=== PATIENT | female | born 1945 | race Caucasian/White ===

== ENCOUNTER 2024-11-07 13:51 | Inpatient (IN) ==
--- NOTE | 2024-11-07 14:24 | Emergency Department Note ---
Impression & Plan Acute cholecystitis, Chest pain, Abnormal pelvic ultrasound ED Provider Note CHIEF COMPLAINT: Abdominal and chest pain HISTORY OF PRESENTING ILLNESS: This 79-year-old female patient presents to the emergency department for evaluation of epigastric abdominal pain radiating into the left upper chest. Symptoms started at 3:30 am this morning. The patient was seen in the ER around 5 AM this morning for similar symptoms. The patient had a bump on the right side of her abdomen and also had 3 normal bowel movements without blood this morning. No history of previous abdominal surgeries. The symptoms are getting progressively worse and the patient became concerned. The pain is mostly in her upper abdomen, but radiating into her chest. She denies any history of acid reflux. She denies any cardiac history. She rates her discomfort as sharp and 10/10. She denies any fevers. Denies cough or URI symptoms. She had nausea this morning, but no vomiting. Denies any urinary symptoms. No diarrhea or constipation. She is not on any blood thinners. She started on atorvastatin about 2 weeks ago. The patient denies recent long car or plane rides or recent injury/trauma/surgery. Denies any personal history of blood clots or bleeding disorders. Denies any family history of blood clots or bleeding disorders. Denies any hormonal medication use. Denies any hemoptysis. Denies leg/calf pain or swelling. Laboratory studies this morning showed an unremarkable CBC, CMP, lipase, and urinalysis. CT scan of the abdomen pelvis with IV contrast done this morning showed diffuse gastric fundus wall thickening measuring up to 2 cm with collapsed gastric lumen which could be secondary to gastritis or nonspecific finding. There is a left adrenal nodule measuring 15 x 11 mm with further dedicated adrenal protocol recommended. Right omental containing inguinal hernia which is noncomplicated. Cholelithiasis without evidence for cholecystitis. Mild hepatomegaly. A distended endometrial cavity measuring 8 mm which needs ultrasound correlation. REVIEW OF SYSTEMS: See HPI for pertinent positives and pertinent negatives. ALLERGIES: NKDA MEDICATIONS: See below PAST MEDICAL HISTORY: See below PHYSICAL EXAM: VITALS: Vitals are noted on the nurse's note and reviewed by myself. GENERAL: Non toxic, in no acute distress, non-diaphoretic. SKIN: Capillary refill <2 sec. EYES: PERRLA. EOMI. Conjunctivae without injection, sclerae without icterus. NOSE: Patent without discharge. MOUTH: Mucous membranes moist. Uvula midline. Airway patent. NECK: Supple without nuchal rigidity. HEART: Regular rate and rhythm without murmurs gallops or rubs. LUNGS: Clear to auscultation bilaterally without wheezes, rales or rhonchi. No retractions or accessory muscle use. ABDOMEN: Positive bowel sounds x 4. Normal tympanic percussion. Soft, tender to palpation in the right upper quadrant and epigastric area. No masses or hepatosplenomegaly. Sheriff sign negative. No CVA tenderness. No guarding, rigidity, or rebound tenderness. No focal RLQ or LLQ tenderness. MUSCULOSKELETAL: No gross musculoskeletal defects. NEURO: Patient was alert and oriented. No focal neurological deficits. DIFFERENTIAL DIAGNOSIS: Differential diagnosis includes hepatitis, pancreatitis, cholecystitis, cholelithiasis, appendicitis, kidney stone, pyelonephritis, UTI, gastritis, gastroenteritis, mesenteric adenitis, obstruction, constipation, hernia, abdominal abscess, perforation, diverticulitis, IBD, ischemic colitis, abdominal aortic aneurysm, , ectopic , ovarian cyst, ovarian torsion, acute salpingitis, or others. ED COURSE AND MEDICAL DECISION MAKING: HISTORY FROM INDEPENDENT HISTORIAN: Additional history obtained from the patient's MEDICATIONS GIVEN: 500 mL normal saline solution bolus. Tylenol 1000 mg IV and Zofran 4 mg IV. Zosyn 4.5 g IV. MONITOR: Continuous employment interviewer: Order was placed for continuous employment interviewer. Patient was placed on the employment interviewer and continuous pulse ox. Patient was noted to be in normal sinus rhythm at an initial rate of 80 bpm per my interpretation. EKG: EKG was interpreted by myself as sinus rhythm at 74 bpm with occasional PVCs, but no acute ST or T wave changes. INTERPRETATION OF LABS: I interpreted the labs with full lab results as below in the lab section of this note. Laboratory results pertinent to the emergent complaint are discussed in the MDM section below. The patient was advised to follow up with their PCP and/or specialist(s) for further outpatient monitoring and management of any abnormal results. INTERPRETATION OF IMAGING: Imaging studies were interpreted by myself and read by radiology as per the imaging section of this note. The patient was advised to follow up with their PCP and/or specialist(s) for further outpatient management of any non-emergent abnormal findings. Chest x-ray showed cardiomegaly, pulmonary vascular congestion, and aortic ectasia. No evidence of acute abnormalities. Right upper quadrant ultrasound showed cholelithiasis with possible acute cholecystitis. Fatty infiltration of the liver. Pelvic ultrasound showed focal fluid or simple cyst in the endometrial cavity measuring 0.7 x 1.3 cm with no endometrial thickening or vascularity. If clinical concern warrants, ITEM PROCESSING CLERK consultation should be considered. CONSULTATIONS: Dr. Alcala of general surgery. On-call hospitalist. MDM SUMMARY: I examined the patient. The patient started with epigastric abdominal pain around 3:30 AM this morning. She was seen in the emergency department around 5 AM this morning and had a CT scan of the abdomen pelvis with IV contrast that showed possible gastritis versus a nonspecific finding as well as a left adrenal nodule, right omental containing inguinal hernia, cholelithiasis without evidence for cholecystitis, mild hepatomegaly, and a distended endometrial cavity. Laboratory studies were reassuring at that time with an unremarkable CBC, CMP, lipase, and urinalysis. The patient was discharged home, but developed significantly worsening pain at home and return to the ER. The patient states that the epigastric and right upper quadrant abdominal pain that radiates into her chest and shoulder area. An IV lock was placed and labs were drawn. The patient was given Tylenol 1000 mg IV and Zofran 4 mg IV with improvement of her symptoms. White blood cell count is now elevated at 15.76 where it was previously 10.21 earlier today. Hemoglobin normal at 13.3. Platelet count normal at 245. PT/INR was normal. Glucose 108, but CMP otherwise normal. Lipase normal. EKG and high-sensitivity troponin without acute abnormalities and I have a low suspicion for ACS at this time. COVID, RSV, and influenza were negative. Initial lactate was elevated at 2.2. Given the patient's elevated lactate and elevated white blood cell count, there is concern for possible sepsis. The patient was only given a 500 mL normal saline solution bolus due to the chest x- ray findings of pulmonary vascular congestion and concern for fluid overload. Blood cultures were drawn. The patient was given Zosyn 4.5 g IV. Unfortunately, the lactate order had been placed prior to my evaluation of the patient and was not the reflex lactate order to be automatically redrawn by lab. Therefore, there was a delay in the repeat lactate level being drawn. The repeat lactate level was normal at 1.8. Chest x-ray showed cardiomegaly, pulmonary vascular congestion, and aortic ectasia. No evidence of acute abnormalities. Right upper quadrant ultrasound showed cholelithiasis with possible acute cholecystitis. Fatty infiltration of the liver. Pelvic ultrasound showed focal fluid or simple cyst in the endometrial cavity measuring 0.7 x 1.3 cm with no endometrial thickening or vascularity. If clinical concern warrants, ITEM PROCESSING CLERK consultation should be considered. The patient was made aware of the previous adrenal nodule as well as the endometrial abnormality. The patient will need continued outpatient management of these findings. Due to the patient's increasing pain, elevated lactate, and elevated white blood cell count with new findings of possible acute cholecystitis on ultrasound, I am concerned for acute cholecystitis as a cause of her symptoms. I spoke with Dr. Alcala of general surgery. He recommended the patient be admitted by medicine with surgical consult and possible cholecystectomy tomorrow if she is medically cleared. The patient had already been given IV Zosyn. He does not recommend MRCP at this time. He will continue to consult on the patient. I then spoke with the on-call hospitalist who agreed to admit the patient for further evaluation and treatment. Please refer to their dictation for further details. The patient's care was transferred in stable condition. I had a meaningful discussion about this patient with Dr. Giraldo who agrees with my assessment and the treatment plan. DIAGNOSIS: Acute cholecystitis Chest pain Abnormal pelvic ultrasound Past Med/Surg History Problem List (Updated 11/07/24 @ 19:36 by Brianda Molina PA-C) Abnormal pelvic ultrasound (Acute) Chest pain (Acute) Acute cholecystitis (Acute) Abdominal pain (Acute) Medical History Sciatica of left side Fell Aug 2023, just completed physical therapy Surgical History H/O right cataract extraction History of colonoscopy Family History Other No family history of adverse response to anesthesia Social History Smoking Status: Never smoker Second Hand Exposure: No; Do You Dip or Chew Tobacco: No; Hx Alcohol Use: No Hx Substance Use: No Preferred Language: Faroese Communication Ability: Effective Raw Hide Trimmer Required: No Beliefs That Will Affect Care: None Current Living Situation: Spouse Feels Safe at Home: Yes Assistive Devices: Glasses Allergies Allergies Allergy/AdvReac Type Severity Reaction Status Date / Time No Known Allergies Allergy Verified 09/05/24 07:00 Home Meds Home Medications Medication Instructions Recorded Confirmed calcium 600 mg (as 1 tab PO BID 08/15/24 09/05/24 carbonate)-vitamin D3 5 mcg (200 unit) tablet calcium polycarbophil 625 mg tablet 1,875 mg PO HS 08/15/24 09/05/24 cholecalciferol (vitamin D3) 50 50 mcg PO QAM 08/15/24 09/05/24 mcg (2,000 unit) tablet (Vitamin D3) fish, borage, flaxseed oils-omega 1 cap PO QAM 08/15/24 09/05/24 3,6,9 cb #1 400 mg-400 mg-400 mg cap (Triple Dennard 3-6-9) glucosamine sulf dipot 1 cap PO QAM 08/15/24 09/05/24 chlr,msm,chond 550 mg-C 30 mg-manfred 1 mg capsule (Glucosamine Chondroitin) grape seed extract 1 cap PO QAM 08/15/24 09/05/24 multivitamin 1 tab PO QAM 08/15/24 09/05/24 vit C 250 mg-vit E 90 mg-zinc 10 1 cap PO QAM 08/15/24 09/05/24 mg-copper 1 [id number] capsule (Eye Health Vitamin-Mineral) vitamin B complex 1 tab PO QAM 08/15/24 09/05/24 Results & Data (ED) Vital Signs Vital Signs - 24 hr 11/07/24 13:54 11/07/24 14:22 11/07/24 15:00 Temperature 37.1 C Temperature Source Temporal Artery Scan Pulse Rate 82 77 82 Pulse Rate [Apical] Pulse Rate from SpO2 Sensor 77 Pulse Rhythm Regular Respiratory Rate 20 22 Respiratory Effort / Characteristics Non-Labored Spontaneous Respiratory Depth Normal Respiratory Pattern Regular Blood Pressure 179/87 H 136/115 H Blood Pressure [Left Arm] Blood Pressure Mean 117 122 Blood Pressure Mean [Left Arm] Blood Pressure Position Sitting Blood Pressure Position [Left Arm] Pulse Oximetry 95 Oxygen Delivery Method Room Air Sepsis Recent Fever Within 48 Hours No Sepsis New/Unexplained Change in Mental Status No Sepsis Action Taken by Nursing No Action Required 11/07/24 15:24 11/07/24 15:34 11/07/24 15:41 Temperature Temperature Source Pulse Rate 79 Pulse Rate [Apical] Pulse Rate from SpO2 Sensor 71 Pulse Rhythm Respiratory Rate 16 Respiratory Effort / Characteristics Respiratory Depth Respiratory Pattern Blood Pressure 153/87 H Blood Pressure [Left Arm] Blood Pressure Mean 118 Blood Pressure Mean [Left Arm] Blood Pressure Position Blood Pressure Position [Left Arm] Pulse Oximetry 96 Oxygen Delivery Method Room Air Sepsis Recent Fever Within 48 Hours Sepsis New/Unexplained Change in Mental Status Sepsis Action Taken by Nursing 11/07/24 15:42 11/07/24 17:21 11/07/24 17:36 Temperature Temperature Source Pulse Rate 75 86 80 Pulse Rate [Apical] Pulse Rate from SpO2 Sensor 79 87 80 Pulse Rhythm Respiratory Rate 18 21 25 H Respiratory Effort / Characteristics Respiratory Depth Respiratory Pattern Blood Pressure 154/83 H Blood Pressure [Left Arm] Blood Pressure Mean 106 Blood Pressure Mean [Left Arm] Blood Pressure Position Blood Pressure Position [Left Arm] Pulse Oximetry 96 95 95 Oxygen Delivery Method Sepsis Recent Fever Within 48 Hours Sepsis New/Unexplained Change in Mental Status Sepsis Action Taken by Nursing 11/07/24 17:45 11/07/24 17:54 11/07/24 18:06 Temperature Temperature Source Pulse Rate 78 75 83 Pulse Rate [Apical] Pulse Rate from SpO2 Sensor 77 73 70 Pulse Rhythm Respiratory Rate 22 16 25 H Respiratory Effort / Characteristics Respiratory Depth Respiratory Pattern Blood Pressure Blood Pressure [Left Arm] Blood Pressure Mean Blood Pressure Mean [Left Arm] Blood Pressure Position Blood Pressure Position [Left Arm] Pulse Oximetry 94 94 95 Oxygen Delivery Method Sepsis Recent Fever Within 48 Hours Sepsis New/Unexplained Change in Mental Status Sepsis Action Taken by Nursing 11/07/24 18:20 11/07/24 18:20 11/07/24 18:24 Temperature Temperature Source Pulse Rate 68 72 Pulse Rate [Apical] Pulse Rate from SpO2 Sensor 74 Pulse Rhythm Respiratory Rate 21 Respiratory Effort / Characteristics Respiratory Depth Respiratory Pattern Blood Pressure 143/72 H Blood Pressure [Left Arm] Blood Pressure Mean 110 Blood Pressure Mean [Left Arm] Blood Pressure Position Blood Pressure Position [Left Arm] Pulse Oximetry 94 Oxygen Delivery Method Sepsis Recent Fever Within 48 Hours Sepsis New/Unexplained Change in Mental Status Sepsis Action Taken by Nursing 11/07/24 18:40 11/07/24 18:59 Temperature Temperature Source Pulse Rate 68 Pulse Rate [Apical] 70 Pulse Rate from SpO2 Sensor Pulse Rhythm Respiratory Rate 19 16 Respiratory Effort / Characteristics Non-Labored Spontaneous Respiratory Depth Normal Respiratory Pattern Regular Blood Pressure Blood Pressure [Left Arm] 142/84 H Blood Pressure Mean Blood Pressure Mean [Left Arm] 103 Blood Pressure Position Blood Pressure Position [Left Arm] Semi-fowlers Pulse Oximetry 92 94 Oxygen Delivery Method Room Air Room Air Sepsis Recent Fever Within 48 Hours Sepsis New/Unexplained Change in Mental Status Sepsis Action Taken by Nursing Laboratory Data 11/07/24 14:36 11/07/24 16:53 Lab Results 11/07/24 11/07/24 11/07/24 Range/Units 14:36 15:40 16:53 WBC 15.76 H (4.8-10.8) K/ul RBC 4.32 (4.20-5.40) M/uL Hgb 13.3 (12.0-16.0) g/dl Hct 40.3 (37.0-47.0) % MCV 93.3 (80.0-100.0) fL MCH 30.8 (25.0-34.0) pg MCHC 33.0 (32.0-36.0) g/dL RDW Std Deviation 44.1 (36.4-46.3) fL RDW Coeff of Feliciano 12.9 (11.5-14.5) % Plt Count 245 (130-400) K/uL MPV 10.1 (9.4-12.4) fL Immature Gran % (Auto) 0.4 % Neut % (Auto) 79.8 % Lymph % (Auto) 12.7 % [place] % (Auto) 6.0 % Eos % (Auto) 0.6 % Baso % (Auto) 0.5 % Neut # (Auto) 12.57 H (1.40-6.50) K/uL Lymph # (Auto) 2.00 (1.20-3.40) K/uL [place] # (Auto) 0.95 H (0.11-0.59) K/uL Eos # (Auto) 0.09 (0.00-0.50) K/uL Baso # (Auto) 0.08 (0.00-0.20) K/uL Immature Gran # (Auto) 0.07 (0.01-0.20) K/uL PT Cancelled 10.5 INR Cancelled 1.0 Sodium 138 (136-145) mmol/L Potassium TNP 3.9 Chloride 104 (98-107) mmol/L Carbon Dioxide 27 (21-32) mmol/L Anion Gap 7 (3-11) BUN 15 (6-23) mg/dl Creatinine 0.72 (0.6-1.2) mg/dl Est Cr Clr Drug Dosing Not Reportable eGFR 85.00 BUN/Creatinine Ratio 20.8 H (10-20) Glucose 108 H (70-99(Fasting)) mg/dl Lactate 2.2 H* (0.4-2.0) mmol/L Calcium 9.4 (8.6-10.3) mg/dl Total Bilirubin 0.4 (0.2-1.0) mg/dl AST TNP 21 ALT 23 (7-52) U/L Alkaline Phosphatase 80 (34-104) U/L Troponin I High Sens < 2.3 (0-14) pg/ml Total Protein 7.5 (6.0-8.3) gm/dl Albumin 4.4 (3.4-5.0) gm/dl Globulin 3.1 (2.5-4.0) gm/dl Albumin/Globulin Ratio 1.4 (0.9-2) Lipase 25 (11-82) U/L SARS-CoV-2 (PCR) NEGATIVE (Negative) Influenza Type A (PCR) Negative (Neg) Influenza Type B (PCR) Negative (Neg) RSV (RT-PCR) Negative (Neg) 11/07/24 Range/Units 18:18 WBC (4.8-10.8) K/ul RBC (4.20-5.40) M/uL Hgb (12.0-16.0) g/dl Hct (37.0-47.0) % MCV (80.0-100.0) fL MCH (25.0-34.0) pg MCHC (32.0-36.0) g/dL RDW Std Deviation (36.4-46.3) fL RDW Coeff of Feliciano (11.5-14.5) % Plt Count (130-400) K/uL MPV (9.4-12.4) fL Immature Gran % (Auto) % Neut % (Auto) % Lymph % (Auto) % [place] % (Auto) % Eos % (Auto) % Baso % (Auto) % Neut # (Auto) (1.40-6.50) K/uL Lymph # (Auto) (1.20-3.40) K/uL [place] # (Auto) (0.11-0.59) K/uL Eos # (Auto) (0.00-0.50) K/uL Baso # (Auto) (0.00-0.20) K/uL Immature Gran # (Auto) (0.01-0.20) K/uL PT INR Sodium (136-145) mmol/L Potassium Chloride (98-107) mmol/L Carbon Dioxide (21-32) mmol/L Anion Gap (3-11) BUN (6-23) mg/dl Creatinine (0.6-1.2) mg/dl Est Cr Clr Drug Dosing eGFR BUN/Creatinine Ratio (10-20) Glucose (70-99(Fasting)) mg/dl Lactate 1.8 (0.4-2.0) mmol/L Calcium (8.6-10.3) mg/dl Total Bilirubin (0.2-1.0) mg/dl AST ALT (7-52) U/L Alkaline Phosphatase (34-104) U/L Troponin I High Sens (0-14) pg/ml Total Protein (6.0-8.3) gm/dl Albumin (3.4-5.0) gm/dl Globulin (2.5-4.0) gm/dl Albumin/Globulin Ratio (0.9-2) Lipase (11-82) U/L SARS-CoV-2 (PCR) (Negative) Influenza Type A (PCR) (Neg) Influenza Type B (PCR) (Neg) RSV (RT-PCR) (Neg) Administered Medications Discontinued Medications Sodium Chloride (Nss) 500 mls @ 999 mls/hr IV .Q31M ONE Stop: 11/07/24 15:12 Last Infusion: 11/07/24 15:53 Dose: Infused Documented By: Admin: 11/07/24 15:04 Dose: 999 mls/hr Documented By: CEF Acetaminophen (Ofirmev) 1,000 mg in 100 mls @ 400 mls/hr IV NOW STA Stop: 11/07/24 14:56 Last Infusion: 11/07/24 15:38 Dose: Infused Documented By: Admin: 11/07/24 15:04 Dose: 400 mls/hr Documented By: CEF Sodium Chloride (Nss) 1,000 mls @ 999 mls/hr IV .Q1H1M ONE Stop: 11/07/24 16:26 Last Admin: 11/07/24 15:42 Dose: Not Given Documented By: CEF Piperacillin Sod/Tazobactam Sod (Zosyn) 4.5 gm in 100 mls @ 200 mls/hr IV NOW ONE; Protocol Stop: 11/07/24 17:45 Last Infusion: 11/07/24 18:26 Dose: Infused Documented By: Admin: 11/07/24 17:25 Dose: 200 mls/hr Documented By: CEF Ondansetron HCl (Ondansetron Inj 2 Mg/Ml 2 Ml Vial) 4 mg IV NOW STA Stop: 11/07/24 14:43 Last Admin: 11/07/24 15:02 Dose: 4 mg Documented By: CEF Imaging Data Radiologist's Impression: Chest X-Ray 11/07/24 14:08 XR chest 1V portable CLINICAL HISTORY: abd pain COMPARISON STUDY: 07/24/2023 FINDINGS: Single view portable chest is unchanged demonstrating mild cardiomegaly and pulmonary vascular congestion. Slight prominence of the interstitial lung markings is once again noted. There is no focal airspace opacity or pleural effusion. There is no pneumothorax. There is atherosclerotic ectasia of the ascending aorta and aortic arch which also appears stable allowing for AP portable technique. IMPRESSION: No definite evidence of acute process. Cardiomegaly and aortic ectasia identified. ACT 112: Negative or not required by law. Electronically signed by: Leticia Gaona M.D. 11/07/2024 3:31 PM Gallbladder Ultrasound 11/07/24 14:42 Clinical history: Right upper quadrant pain Technique: Sonography was performed of the right upper quadrant of the abdomen Findings: There is fatty infiltration of the liver. No definite liver mass is seen. The liver measures 18.9 cm. There is normal directional flow in the main portal vein There are multiple gallstones. There is also apparent gallbladder sludge. The gallbladder is mildly distended. The gallbladder wall measures 3 mm, the upper limit of normal. No definite sonographic Sheriff sign was detected, though this could be due to pain medication. There is no intrahepatic or extrahepatic bile duct dilatation. The common bile duct measures 3 mm The right kidney measures 11.5 cm in length. There is no hydronephrosis. No definite renal calculus or mass is seen The visualized pancreas, aorta, and IVC appear unremarkable. No ascites is seen Impression: 1. Cholelithiasis with possible acute cholecystitis 2. Fatty infiltration of the liver ACT 112: Positive. There are findings on this exam that require communication between the performing entity and the patient following Patient Test Result Information Act ([place] ACT 112) guidelines. Electronically signed by Arturo Berger 11-07-2024 5:12 PM Pelvis Ultrasound 11/07/24 14:42 EXAMINATION: Ultrasound pelvis complete CLINICAL HISTORY: Follow-up from CT PRIORS: Abdomen CT today TECHNIQUE: Transabdominal pelvic ultrasound was performed with grayscale and color Doppler imaging. Transvaginal portion of the examination was declined. FINDINGS: Urinary bladder is filled with normal morphology. The uterus measures 6.0 x 2.6 x 3.7 cm. Nabothian cysts noted in the cervix. Endometrial stripe measures 3 mm. Simple cyst cyst and/or focal area of fluid present within the endometrial cavity measuring 0.7 x 1.3 cm. No vascularity or solid components. Ovaries not visualized. No large adnexal cyst or mass. No free fluid in the pelvis. IMPRESSION: 1. Focal fluid or simple cyst in the endometrial cavity measuring 0.7 x 1.3 cm with no endometrial thickening or vascularity. If clinical concern warrants, gynecologic consultation could be considered. ACT 112: Positive. There are findings on this examination that require communication between the performing entity and the patient following Patient Test Result Information Act ([place] ACT 112) guidelines. Electronically signed by Laurel Angulo 11-07-2024 5:00 PM Discharge Plan Visit Data Chief Complaint: Chest Pain Stated Complaint: ABD PAIN AND CHEST PAIN ED Provider: Ellen Giraldo ED Midlevel Provider: Brianda Molina Discharge Problem: Acute cholecystitis, Chest pain, Abnormal pelvic ultrasound Patient Disposition: Admitted As Inpatient Condition: Good Forms Stand Alone Forms: [employer] Prescriptions Prescriptions: No Action multivitamin Tablet 1 tab PO QAM calcium carbonate-vitamin D3 600 mg-5 mcg (200 unit) Tablet 1 tab PO BID calcium polycarbophil 625 mg Tablet 1,875 mg PO HS vitamin B complex Tablet 1 tab PO QAM cholecalciferol (vitamin D3) [Vitamin D3] 50 mcg (2,000 unit) Tablet 50 mcg PO QAM fish,bora,flax oils-om3,6,9no1 [Triple Dennard 3-6-9] 400-400-400 mg Capsule 1 cap PO QAM Glucosamine Chondroitin 550-30-1 mg Capsule 1 cap PO QAM Eye Health Vitamin-Mineral 250-90-10-1 mg Capsule 1 cap PO QAM grape seed extract 1 cap PO QAM Referrals Referrals: Jesi Lindsay DO [Primary Care Provider] - Discharge Problem: Chest pain Qualifiers: Chest pain type: unspecified Qualified Code(s): R07.9 - Chest pain, unspecified
[2024-11-07 14:51] LABS: Basophils # (auto) 0.08 K/uL (0.00-0.20); Basophils % (auto) 0.5 %; Eosinophils # (auto) 0.09 K/uL (0.00-0.50); Eosinophils % (auto) 0.6 %; Hematocrit (blood only) 40.3 % (37.0-47.0); Hemoglobin 13.3 g/dl (12.0-16.0); Immature Granulocytes # (auto) 0.07 K/uL (0.01-0.20); Immature Granulocytes % (auto) 0.4 %; Lymphocytes % (auto) 12.7 %; Mean Corpuscular Hemoglobin 30.8 pg (25.0-34.0); Mean Corpuscular Volume 93.3 fL (80.0-100.0); Mean Platelet Volume 10.1 fL (9.4-12.4); Monocytes # (auto) 0.95 K/uL (0.11-0.59); Neutrophils # (auto) 12.57 K/uL (1.40-6.50); Neutrophils % (auto) 79.8 %; Platelet Count 245 K/uL (130-400); RDW Coefficient of Variation 12.9 % (11.5-14.5); RDW Standard Deviation 44.1 fL (36.4-46.3); Red Blood Count 4.32 M/uL (4.20-5.40); White Blood Count 15.76 K/ul (4.8-10.8)
[2024-11-07] MEDS: ONDANSETRON INJ 2 MG/ML 2 ML VIAL IV STA (15:02)
[2024-11-07] MEDS: ACETAMINOPHEN 1,000 MG/100 ML VIAL IV STA (15:04)
[2024-11-07] MEDS: SODIUM CHLORIDE 0.9% 500 ML IV ONE (15:04)
[2024-11-07 15:09] LABS: Alanine Aminotransferase 23 U/L (7-52); Albumin Globulin Ratio 1.4 (0.9-2); Albumin Level 4.4 gm/dl (3.4-5.0); Alkaline Phosphatase 80 U/L (34-104); Anion Gap 7 (3-11); BUN Creatinine Ratio 20.8 (10-20); Bilirubin,Total 0.4 mg/dl (0.2-1.0); Blood Urea Nitrogen 15 mg/dl (6-23); Calcium 9.4 mg/dl (8.6-10.3); Carbon Dioxide 27 mmol/L (21-32); Chloride 104 mmol/L (98-107); Globulin 3.1 gm/dl (2.5-4.0); Glucose 108 mg/dl (70-99(Fasting)); Lipase 25 U/L (11-82); Sodium 138 mmol/L (136-145); Total Protein 7.5 gm/dl (6.0-8.3)
--- NOTE | 2024-11-07 15:33 | XRay Report ---
XR chest 1V portable CLINICAL HISTORY: abd pain COMPARISON STUDY: 07/24/2023 FINDINGS: Single view portable chest is unchanged demonstrating mild cardiomegaly and pulmonary vascu lar congestion. Slight prominence of the interstitial lung markings is once again noted. There is no focal airspace opacity or pleural effusion. There is no pneumothorax. There is atherosclerotic ectasi a of the ascending aorta and aortic arch which also appears stable allowing for AP portable technique . IMPRESSION: No definite evidence of acute process. Cardiomegaly and aortic ectasia identified. ACT 112: Negative or not required by law. Electronically signed by: Leticia Gaona M.D. 11/07/2024 3:31 PM
[2024-11-07] MEDS: SODIUM CHLORIDE 0.9% 1,000 ML IV ONE (15:42)
[2024-11-07 16:15] LABS: Troponin I High Sensitivity < 2.3 pg/ml (0-14)
--- NOTE | 2024-11-07 17:00 | Ultrasound Report ---
EXAMINATION: Ultrasound pelvis complete CLINICAL HISTORY: Follow-up from CT PRIORS: Abdomen CT today TECHNIQUE: Transabdominal pelvic ultrasound was performed with grayscale and color Doppler imaging. Transvaginal portion of the examination was declined. FINDINGS: Urinary bladder is filled with normal morphology. The uterus measures 6.0 x 2.6 x 3.7 cm. Nabothian cysts noted in the cervix. Endometrial stripe measures 3 mm. Simple cyst cyst and/or focal area of fluid present within the endometrial cavity measuring 0.7 x 1.3 cm. No vascularity or solid components. Ovaries not visualized. No large adnexal cyst or mass. No free fluid in the pelvis. IMPRESSION: 1. Focal fluid or simple cyst in the endometrial cavity measuring 0.7 x 1.3 cm with no endometrial thickening or vascularity. If clinical concern warrants, gynecologic consultation could be considered. ACT 112: Positive. There are findings on this examination that require communication between the performing entity and the patient following Patient Test Result Information Act ([place] ACT 112) guidelines. Electronically signed by Laurel Angulo 11-07-2024 5:00 PM
--- NOTE | 2024-11-07 17:12 | Ultrasound Report ---
Clinical history: Right upper quadrant pain Technique: Sonography was performed of the right upper quadrant of the abdomen Findings: There is fatty infiltration of the liver. No definite liver mass is seen. The liver measures 18.9 cm. There is normal directional flow in the main portal vein There are multiple gallstones. There is also apparent gallbladder sludge. The gallbladder is mildly distended. The gallbladder wall measures 3 mm, the upper limit of normal. No definite sonographic Sheriff sign was detected, though this could be due to pain medication. There is no intrahepatic or extrahepatic bile duct dilatation. The common bile duct measures 3 mm The right kidney measures 11.5 cm in length. There is no hydronephrosis. No definite renal calculus or mass is seen The visualized pancreas, aorta, and IVC appear unremarkable. No ascites is seen Impression: 1. Cholelithiasis with possible acute cholecystitis 2. Fatty infiltration of the liver ACT 112: Positive. There are findings on this exam that require communication between the performing entity and the patient following Patient Test Result Information Act ([place] ACT 112) guidelines. Electronically signed by Arturo Berger 11-07-2024 5:12 PM
[2024-11-07] MEDS: PIPERACILLIN/TAZOBACTAM 4.5 GM/100 ML BAG IV ONE (17:25)
[2024-11-07 17:27] LABS: Potassium 3.9 mmol/L (3.5-5.1)
[2024-11-07 17:56] LABS: Prothrombin Time 10.5 Seconds (9.0-12.0)
--- NOTE | 2024-11-07 18:16 | Emergency Department Note ---
ED Visit Note I was consulted by the Advanced Practice Provider. I approved the management plan and take responsibility for the patient management. This includes the aspects of: -History/Physical/Personally seeing the patient -MDM -I independently interpreted the following studies:Studies and results .
--- NOTE | 2024-11-07 18:28 | History & Physical Report ---
Date of Service November 07, 2024 Assessment & Plan (1) Abdominal pain: Plan Acute cholecystitis CTAP reviewed, US GB suggestive of cholelithiasis and cholecystitis. Patient presents with upper abdominal pain, worse with eating. N.p.o., IV fluid, Zosyn, general surgery consult.Pain management, nausea control. Abnormal Pelvic Imaging: Left adrenal nodule 15 x 11 mm and focal fluid or simple cyst in the endometrial cavity measuring 0.7 x 1.3 cm. Patient and her made aware of the findings. They are made aware to follow this up as an outpatient with dedicated imaging for left adrenal nodule and gynecology evaluation for endometrial cyst. Other chronic medical conditions: HLD, continue with home medications. Hold multivitamins for now. DVT prophylaxis: SCDs, contemplated surgery next few days. Full code History of Present Illness Chief Complaint: Upper belly pain Primary Care Provider: Jesi Lindsay DO 79-year-old lady with PMH of HLD, osteopenia, prediabetes presents to the ED with complaint of upper belly pain. 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 Her pain slowly improved and she was discharged to home. After reaching home she ate tea and toast and her pain increased and became severe. While coming back to the hospital to see took a small dose of ibuprofen and she received IV Tylenol in the ED which helped improve her pain down to 0 at bedside exam. Patient denies fever/sore throat/cough/nausea/vomiting. Patient had an episode of nausea last evening and an episode of dry heave today morning. Patient denies any pain or burning with passing urine, reports moving bowels okay. Patient denies smoking tobacco/alcohol use/recreational drug use. Medications reviewed with the patient and her at bedside. Plan of care discussed with the patient in detail. She voiced understanding. Full code Allergies Allergy/AdvReac Type Severity Reaction Status Date / Time No Known Allergies Allergy Verified 09/05/24 07:00 Home Medications Medication Instructions Recorded Confirmed Type calcium 600 mg (as 1 tab PO BID 08/15/24 09/05/24 History carbonate)-vitamin D3 5 mcg (200 unit) tablet calcium polycarbophil 625 mg tablet 1,875 mg PO HS 08/15/24 09/05/24 History cholecalciferol (vitamin D3) 50 50 mcg PO QAM 08/15/24 09/05/24 History mcg (2,000 unit) tablet (Vitamin D3) fish, borage, flaxseed oils-omega 1 cap PO QAM 08/15/24 09/05/24 History 3,6,9 cb #1 400 mg-400 mg-400 mg cap (Triple [place] 3-6-9) glucosamine sulf dipot 1 cap PO QAM 08/15/24 09/05/24 History chlr,msm,chond 550 mg-C 30 mg-manfred 1 mg capsule (Glucosamine Chondroitin) grape seed extract 1 cap PO QAM 08/15/24 09/05/24 History multivitamin 1 tab PO QAM 08/15/24 09/05/24 History vit C 250 mg-vit E 90 mg-zinc 10 1 cap PO QAM 08/15/24 09/05/24 History mg-copper 1 [id number] capsule ([facility] Health Vitamin-Mineral) vitamin B complex 1 tab PO QAM 08/15/24 09/05/24 History Past Med/Surg History Problem List (Updated 11/07/24 @ 09:07 by Figueroa Posey M.D.) Abdominal pain (Acute) Medical History Sciatica of left side Fell Aug 2023, just completed physical therapy Surgical History H/O right cataract extraction History of colonoscopy Family History Other No family history of adverse response to anesthesia Social History Smoking Status: Never smoker Second Hand Exposure: No; Do You Dip or Chew Tobacco: No; Hx Alcohol Use: No Hx Substance Use: No Preferred Language: Citizen Of [place] Communication Ability: Effective Territory Sales Professional Required: No Beliefs That Will Affect Care: None Current Living Situation: Spouse Feels Safe at Home: Yes Assistive Devices: Glasses Review of Systems Review of Systems: Negative otherwise mentioned in HPI. Physical Exam Physical Exam: GENERAL: Alert and oriented x3. NAD, on RA. HEENT: No pallor, no icterus. Pupils equal, round and reactive to light. Oral mucosa moist. NECK: No JVD, no neck masses. HEART: S1 and S2 heard. Regular rate and rhythm. No murmur, no gallop. RESPIRATORY SYSTEM: Normal AP diameter. No accessory muscle use. No wheezing, no crackles. ABDOMEN: Soft, bowel sounds present, nontender, no distention. CENTRAL NERVOUS SYSTEM: No facial droop. Speech is clear. Obeys simple commands. Moves extremities. EXTREMITIES: No edema, no erythema seen. Results & Data Results & Data Vital Signs (Past 12 Hours) Vital Signs Temp Pulse Resp BP O2 Del Method 11/07/24 15:34 Room Air 11/07/24 14:22 77 11/07/24 13:54 37.1 C 82 20 179/87 H Room Air
[2024-11-07 19:12] LABS: Influenza A virus by PCR Negative (Neg); Influenza B virus by PCR Negative (Neg); RSV by PCR Negative (Neg); SARS CoV2 RNA(COVID-19) Ceph NEGATIVE (Negative)
[2024-11-07] MEDS ORDERED: ONDANSETRON INJ 2 MG/ML 2 ML VIAL IV PRN (20:00)
[2024-11-08 07:39] LABS: Hematocrit (blood only) 35.6 % (37.0-47.0); Hemoglobin 11.9 g/dl (12.0-16.0); Mean Corpuscular Hemoglobin 31.2 pg (25.0-34.0); Mean Corpuscular Hgb Conc 33.4 g/dL (32.0-36.0); Mean Corpuscular Volume 93.2 fL (80.0-100.0); Mean Platelet Volume 10.2 fL (9.4-12.4); Platelet Count 222 K/uL (130-400); RDW Coefficient of Variation 13.2 % (11.5-14.5); RDW Standard Deviation 45.1 fL (36.4-46.3); Red Blood Count 3.82 M/uL (4.20-5.40)
[2024-11-08 07:42] LABS: Appearance Urine Clear (Clear); Bilirubin Urine Negative (Negative); Blood Urine Negative (Negative); Color Urine Yellow; Glucose Urine UA Negative (Negative); Ketones Urine Negative (Negative); Leukocyte Esterase Urine Negative (Negative); Nitrite Urine Negative (Negative); Protein Urine Negative (Negative); Specific Gravity Urine 1.019 (1.000-1.030); Urobilinogen Urine Negative (Negative)
--- NOTE | 2024-11-08 07:42 | Surgery Consultation ---
Date of Consultation November 08, 2024 Assessment & Plan (1) Acute cholecystitis: IV abx IVF medically cleared, lap claudia this AM History of Present Illness Attending Physician: Vida Silva MD History of Present Illness 79YO female patient with RUQ/epigastric abdominal pain radiating across chest.She denies fevers/chills. She had nausea this morning, but no vomiting. GB ultrasound consistent with acute cholecystitis Allergies Allergy/AdvReac Type Severity Reaction Status Date / Time No Known Allergies Allergy Verified 11/07/24 19:47 Home Medications Medication Instructions Recorded Confirmed Type calcium 600 mg (as 1 tab PO BID 08/15/24 11/07/24 History carbonate)-vitamin D3 5 mcg (200 unit) tablet calcium polycarbophil 625 mg tablet 1,875 mg PO HS 08/15/24 11/07/24 History cholecalciferol (vitamin D3) 50 50 mcg PO QAM 08/15/24 11/07/24 History mcg (2,000 unit) tablet (Vitamin D3) fish, borage, flaxseed oils-omega 1 cap PO QAM 08/15/24 11/07/24 History 3,6,9 cb #1 400 mg-400 mg-400 mg cap (Triple [place] 3-6-9) glucosamine sulf dipot 1 cap PO QAM 08/15/24 11/07/24 History chlr,msm,chond 550 mg-C 30 mg-manfred 1 mg capsule (Glucosamine Chondroitin) multivitamin 1 tab PO QAM 08/15/24 11/07/24 History atorvastatin 20 mg tablet 20 mg PO QAM 11/07/24 11/07/24 History grape seed extract 50 mg capsule 0 mg PO QAM 11/07/24 11/07/24 History Patient History Medical History Sciatica of left side Fell Aug 2023, just completed physical therapy Surgical History H/O right cataract extraction History of colonoscopy Family History Other No family history of adverse response to anesthesia Social History Smoking Status: Former smoker Second Hand Exposure: No; Do You Dip or Chew Tobacco: No; Tobacco Cessation Education Requested by Patient: No Hx Alcohol Use: No Hx Substance Use: No Preferred Language: Greenlandic Communication Ability: Effective 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 Beliefs That Will Affect Care: None Current Living Situation: Spouse Other Information That Helps Us Care for You: No Feels Safe at Home: Yes Safety Concerns: Feels Safe At This Time Assistive Devices: Cane Assistive Devices Comment: cane when in pain Review of Systems Constitutional: + anorexia; no fever and no chills Eyes: no problem reported Ear, Nose, Mouth, Throat: no problem reported Respiratory: no cough and no dyspnea Cardiovascular: no chest pain Gastrointestinal: + abdominal pain and + nausea; no vomiti ng and no change in bowel habits Genitourinary: no dysuria Musculoskeletal: no back pain Neurologic: no localized weakness and no generalized weakness Psychiatric: no behavioral changes Hematologic / Lymphatic: no easy bleeding and no easy bruising Physical Exam Eyes: no scleral abnormality ENMT: external ear and nose normal, oropharynx normal Neck: trachea midline Respiratory: normal respiratory effort, lungs clear to auscultation Cardiovascular: RRR, no murmur, no edema Gastrointestinal (Abdomen): Inspection/Auscultation: abdomen normal to inspection and normal bowel sounds; abdomen not distended and no abdominal surgical scar Percussion/Palpation: + abdomen tender and abdomen soft; no guarding and abdomen not rigid Musculoskeletal: Head/Neck/Chest: normocephalic and head atraumatic Skin: no rashes, warm and dry Results & Data Vital Signs (Past 12 Hours) Vital Signs Temp Pulse Pulse Resp BP Pulse Ox O2 Del Method 11/08/24 07:20 36.8 C 70 16 134/71 95 Room Air 11/07/24 21:00 Room Air 11/07/24 21:00 36.5 C 79 18 152/71 H 97 Room Air 11/07/24 20:00 78 16 107/70 94 Room Air Diagnostic Findings Clinical history: Right upper quadrant pain Technique: Sonography was performed of the right upper quadrant of the abdomen Findings: There is fatty infiltration of the liver. No definite liver mass is seen. The liver measures 18.9 cm. There is normal directional flow in the main portal vein There are multiple gallstones. There is also apparent gallbladder sludge. The gallbladder is mildly distended. The gallbladder wall measures 3 mm, the upper limit of normal. No definite sonographic Sheriff sign was detected, though this could be due to pain medication. There is no intrahepatic or extrahepatic bile duct dilatation. The common bile duct measures 3 mm The right kidney measures 11.5 cm in length. There is no hydronephrosis. No definite renal calculus or mass is seen The visualized pancreas, aorta, and IVC appear unremarkable. No ascites is seen Impression: 1. Cholelithiasis with possible acute cholecystitis 2. Fatty infiltration of the liver
[2024-11-08 08:16] LABS: Alanine Aminotransferase 21 U/L (7-52); Albumin Level 3.6 gm/dl (3.4-5.0); Alkaline Phosphatase 75 U/L (34-104); Anion Gap 5 (3-11); BUN Creatinine Ratio 16.9 (10-20); Bilirubin,Total 0.6 mg/dl (0.2-1.0); Blood Urea Nitrogen 13 mg/dl (6-23); Calcium 8.6 mg/dl (8.6-10.3); Carbon Dioxide 28 mmol/L (21-32); Chloride 107 mmol/L (98-107); Creatinine Clr Calc Pharmacy 60.9 ml/min; Glucose 97 mg/dl (70-99(Fasting)); Magnesium 1.9 mg/dl (1.7-2.4); Phosphorus 3.5 mg/dl (2.5-4.9); Sodium 140 mmol/L (136-145); Total Protein 6.2 gm/dl (6.0-8.3)
[2024-11-08] MEDS: LACTATED RINGER'S 1,000 ML IV SCH (09:38)
[2024-11-08 10:42] LABS: Bilirubin Direct 0.1 mg/dl (0-0.2); Potassium 4.1 mmol/L (3.5-5.1)
[2024-11-08] MEDS ORDERED: PROPOFOL IV EMULSION 10 MG/ML 20 ML VIAL IV ONE (11:30)
[2024-11-08] MEDS ORDERED: LIDOCAINE 2% 2 ML VIAL/AMP(20MG/ML) INFIL ONE (11:30)
[2024-11-08] MEDS ORDERED: fentaNYL citrate PF 100 MCG/2 ML VIAL ONE ×2 (11:30→12:16)
[2024-11-08] MEDS ORDERED: LARYING-O-JET KIT (LTA) ONE (11:33)
[2024-11-08] MEDS ORDERED: ROCURONIUM BROMIDE 10 MG/ML 5 ML VIAL IV ONE (11:33)
[2024-11-08] MEDS ORDERED: DEXAMETHASONE SOD INJ 4 MG/ML VIAL ONE (11:33)
[2024-11-08] MEDS ORDERED: ONDANSETRON INJ 2 MG/ML 2 ML VIAL ONE (11:33)
[2024-11-08] MEDS ORDERED: MIDAZOLAM HCL 1 MG/ML 2ML VIAL ONE (11:36)
--- NOTE | 2024-11-08 11:44 | Hospitalist Progress Note ---
Date of Service November 08, 2024 Assessment & Plan (1) Abdominal pain: Plan Ashley is a 79 yr old F who has a significant PMH of HLD, Pre diabetes and osteopenia who presented to ED on 11/07 for upper abdominal pain. #Abdominal pain #Acute cholecystitis CTAP reviewed, US GB suggestive of cholelithiasis and cholecystitis. Patient presents with upper abdominal pain, worse with eating. NPO for Lap Mary later today Continue NSS while NPO, IV Zosyn Gen surgery on board appreciate their recs Abnormal Pelvic Imaging: Left adrenal nodule 15 x 11 mm and focal fluid or simple cyst in the endometrial cavity measuring 0.7 x 1.3 cm. Patient and her made aware of the findings. They are made aware to follow this up as an outpatient with dedicated imaging for left adrenal nodule and gynecology evaluation for endometrial cyst. Other chronic medical conditions: HLD, continue with home medications. Hold multivitamins for now. DVT prophylaxis: SCDs, consider chemical ppx if requiring prolonged hospital stay Full code PCP: Dr. Lindsay Dispo: Plan to discharge home when cleared by surgery post operatively Pt was seen and examined in collaboration with Dr. Aldridge please see addendum. I spent a total of 45 minutes coordinating, documenting and providing care for this patient excluding time spent in the performance of separately billed services or time spent by another provider/QHP. Admission and Anticipated Discharge Date Admission Date: November 07, 2024 Supervising Physician Co-Signing Physician Notes Patient who presents with acute cholecystitis. Taken to the OR this morning for lap mary, with no immediate postoperative complications noted. Will monitor stool output, urine output, creatinine, hemoglobin in setting of postoperative course. Today's postop day 0. Appreciate surgery recommendations and assistance with case. I have seen and discussed the case with the collaborating advanced practitioner. I agree with the above H&P. I have reviewed and confirmed the patients medical history, the findings on physical examination, and the patients diagnosis and treatment plan with Izabella Hood PA-C and agree with the information docum ented. I spent a total of 20 minutes coordinating, documenting, and providing care for this patient excluding time spent in the performance of separately billed services. All of the aforementioned completed outside of collaborating with the assigned advanced practitioner for a full treatment plan. I have reviewed the advanced practitioner's documentation, and I agree with, and take responsibility for the plan of care Subjective Pt seen in room 352-2. She reports improvement in her abdominal pain and states she is hungry. She reports 2 separate ED visits for similar sx with the most recent showing concerning findings for acute cholecystitis. She denies similar sx in past. She reports last meal was cereal and skim milk. She reports severe upper abd pain that waxed and waned. Currently denies f/c/s, chest pain, sob, n/v/d. She reports 3-4 episodes of diarrhea yesterday associated with the pain. Review of Systems Review of Systems: All systems reviewed & are unremarkable except as noted in HPI & below Physical Exam Physical Exam: Gen: WD/WN, NAD, A&O x3 HEENT: Normocephalic, atraumatic, conjunctivae moist, sclerae anicteric, mucous membranes moist. Lung: Clear to Auscultation bilaterally, no wheezes/rales/rhonchi Heart: Regular rate, regular rhythm, no murmurs, rubs, or gallops Abdomen: Soft, NT, ND +BS x 4 Extremities: No edema Skin: Warm, no rash, negative turgor. Results & Data Results & Data Vital Signs (Past 12 Hours) Vital Signs Temp Pulse Resp BP Pulse Ox O2 Del Method 11/08/24 09:16 Room Air 11/08/24 07:20 36.8 C 70 16 134/71 95 Room Air Laboratory Results I have independently reviewed and interpreted patient's CBC, CMP Medications Administered Current Inpatient Medications Acetaminophen (Acetaminophen 325 Mg Tab) 650 mg PO Q4H PRN PRN Reason: pain/fever Stop: 12/07/24 18:14 Piperacillin Sod/Tazobactam Sod (Zosyn) 4.5 gm in 100 mls @ 25 mls/hr IV Q8H ALMA; Protocol Stop: 11/12/24 22:59 Lactated Ringer's (Lr) 1,000 mls @ 80 mls/hr IV .[id number] ALMA Stop: 11/09/24 09:29 Last Admin: 11/08/24 09:38 Dose: 80 mls/hr Ondansetron HCl (Ondansetron Inj 2 Mg/Ml 2 Ml Vial) 4 mg IV Q6H PRN PRN Reason: Nausea Stop: 12/07/24 19:59
[2024-11-08] MEDS ORDERED: PROMETHAZINE HCL 6.25 MG in SODIUM CHLORIDE 0.9% 50 ML IV PRN (11:49)
[2024-11-08] MEDS ORDERED: ONDANSETRON INJ 2 MG/ML 2 ML VIAL IV PRN (11:49)
[2024-11-08] MEDS ORDERED: NALOXONE HCL 0.4 MG/1 ML VIAL/CARP IV PRN (11:49)
[2024-11-08] MEDS ORDERED: ATROPINE SULFATE 0.1 MG/ML 10ML SYR IV PRN (11:49)
[2024-11-08] MEDS ORDERED: FLUMAZENIL 0.1 MG/1 ML 10 ML VIAL IV PRN (11:49)
[2024-11-08] MEDS ORDERED: ePHEDrine sulfate 50 MG/ML AMP IV PRN (11:49)
[2024-11-08] MEDS ORDERED: fentaNYL citrate PF 100 MCG/2 ML VIAL IV PRN (11:49)
--- NOTE | 2024-11-08 11:49 | Anesthesiology Consultation ---
Date of Service November 08, 2024 Assessment & Plan Chart Review Chart Review: Acceptable Risk for Surgery and Patient NOT seen in Pre Admission Testing Consults Requested none ASA ASA3 Proposed Anesthesia Anesthesia Type: General Risk / Benefits Reviewed With: PT / POA / Parent / Guardian, Accepts Plan and Informed Consent Obtained History Surgery Operation Date: 11/08/24 08:20 Proposed Procedures p Laparoscopic Cholecystectomy - Jacob Alcala MD Height/Weight Height: 5 ft 2 in Weight: 87.543 kg Allergies Allergy/AdvReac Type Severity Reaction Status Date / Time No Known Allergies Allergy Verified 11/07/24 19:47 Medications Home Medications Medication Instructions Recorded Confirmed Last Taken calcium 600 mg (as 1 tab PO BID 08/15/24 11/07/24 09/03/24 carbonate)-vitamin D3 5 mcg (200 unit) tablet calcium polycarbophil 625 mg tablet 1,875 mg PO HS 08/15/24 11/07/24 09/03/24 cholecalciferol (vitamin D3) 50 50 mcg PO QAM 08/15/24 11/07/24 09/03/24 mcg (2,000 unit) tablet (Vitamin D3) fish, borage, flaxseed oils-omega 1 cap PO QAM 08/15/24 11/07/24 09/03/24 3,6,9 cb #1 400 mg-400 mg-400 mg cap (Triple [place] 3-6-9) glucosamine sulf dipot 1 cap PO QAM 08/15/24 11/07/24 09/03/24 chlr,msm,chond 550 mg-C 30 mg-manfred 1 mg capsule (Glucosamine Chondroitin) multivitamin 1 tab PO QAM 08/15/24 11/07/24 09/03/24 atorvastatin 20 mg tablet 20 mg PO QAM 11/07/24 11/07/24 Unknown grape seed extract 50 mg capsule 0 mg PO QAM 11/07/24 11/07/24 Unknown Active Medications Generic Name Dose Route Start Last Admin Trade Name Freq PRN Reason Stop Dose Admin Lactated Ringer's 1,000 mls @ 80 mls/hr 11/08/24 09:30 11/08/24 09:38 Lr IV 11/09/24 09:29 80 mls/hr .[id number] ALMA Administration NPO Date Last Intake of Fluids: 04/09/25 Time Last Intake of Fluids: 23:50 Date Last Intake of Solids: 11/07/24 Time Last Intake of Solids: 20:00 Past Medical History Medical History Sciatica of left side Fell Aug 2023, just completed physical therapy obese HLD Pre DM Exercise / Class Metabolic Activity II 4-5 Yardwork/Stairs/Walk up hill Past Family History Family History Other No family history of adverse response to anesthesia Past Surgical History Surgical History H/O right cataract extraction History of colonoscopy Past Anesthesia History No Hx of Anesthesia Complications and No Family Hx of Anesthesia Complications History of PONV No Hx of PONV and No Hx of Motion Sickness Social History Smoking Status: Former smoker Do You Dip or Chew Tobacco: No Hx Alcohol Use: No Hx Substance Use: No substance use type: does not use Physical Exam Vital Signs Last Vital Signs Temp 36.7 C 11/08/24 11:39 Pulse 79 11/08/24 11:39 Resp 20 11/08/24 11:39 BP 169/91 H 11/08/24 11:39 Pulse Ox 94 11/08/24 11:39 O2 Del Method Room Air 11/08/24 11:39 Constitutional + obese ENMT Mouth: no dentition abnormality Thyromental Distance: < 3.5 Finger Breadths Mallampati Class: II Neck normal visual inspection and trachea midline; neck extension not limited Respiratory normal respiratory effort Auscultation: lungs clear to auscultation bilaterally Cardiovascular Rate/Rhythm: regular rate and regular rhythm Heart Sounds: no murmur Vessels: no carotid bruit Musculoskeletal Spine: normal cervical ROM and no pain with cervical ROM Extremities: extremities normal to inspection; full ROM of extremities Neurologic moves all extremities Motor/Sensory: no sensory deficit Psychiatric Orientation: alert and oriented x 3 Testing Laboratory Results 11/08/24 06:34 11/08/24 10:01 PT 10.5 Seconds (9.0-12.0) 11/07/24 16:53 INR 1.0 (0.9-1.1) 11/07/24 16:53 Urine Color Yellow 11/08/24 07:25 Urine Appearance Clear (Clear) 11/08/24 07:25 Urine pH 6.0 (4.5-7.5) 11/08/24 07:25 Ur Specific [place] 1.019 (1.000-1.030) 11/08/24 07:25 Urine Protein Negative (Negative) 11/08/24 07:25 Urine Glucose (UA) Negative (Negative) 11/08/24 07:25 Urine Ketones Negative (Negative) 11/08/24 07:25 Urine Nitrite Negative (Negative) 11/08/24 07:25 Ur Leukocyte Esterase Negative (Negative) 11/08/24 07:25 Electrocardiogram Date: 11/07/24 Findings: + NSR @ (@ 74 w/ occas. PVC's) Chest X-Ray Date: 11/07/24 Findings: + NAD and + atherosclerosis of thoracic aorta
[2024-11-08] MEDS ORDERED: PHENYLEPHRINE 100MCG/ML 5ML SYR ONE (12:06)
[2024-11-08] MEDS ORDERED: ceFAZolin 330 MG/ML 1 GM VIAL ONE ×2 (12:12)
[2024-11-08] MEDS ORDERED: SUGAMMADEX SODIUM 200 MG/2 ML VIAL IV ONE (12:16)
[2024-11-08] MEDS: BUPIVACAINE/EPINEPHRINE 0.5% MPF 1:200,000 30 ML VIAL ONE (12:23)
--- NOTE | 2024-11-08 12:45 | Operative Report ---
Post Operative Report Pre & Post Diagnosis Operation Date: 11/08/24 08:20 Pre-Op Diagnosis: Acute cholecystitis Post-Op Diagnosis: Acute cholecystitis I identified the patient and participated in the time-out.: Yes Procedure Operation Date: 11/08/24 08:20 Actual Procedures p Laparoscopic Cholecystectomy(Not Applicable) - Jacob Alcala MD Surgeon Jacob Alcala MD Drying Oven Attendant Zaida Evangelista PA-C Estimated Blood Loss 20 Findings Consistent with Post-Op Diagnosis Specimens Gallbladder to pathology Drains none Anesthesia Type General Complications none Disposition Accompanied Patient To Recovery: Yes Disposition: Recovery Room Indications This is a 79-year-old female admitted with acute cholecystitis. We talked her in detail about this and recommended a laparoscopic cholecystectomy. She understands all the risks and wished to proceed. Description of Procedure The patient was taken the OR, placed in the supine position and underwent excellent general endotracheal anesthesia. Their abdomen is prepped and draped normal sterile fashion. A transverse supraumbilical incision was made and disse ction was taken down to identify the anterior fascia. Two Vicryl' sutures were placed on either side of the midline and his midline was then incised. The peritoneal cavity was entered bluntly with Melissa clamp. A 12mm Holliday trocar was then inserted and secured. Good pneumoperitoneum was achieved to 15 mmHg pressure. The patient was placed in head up and rolled to the left position. A 11mm subxiphoid and two 5mm lateral ports were placed in the normal fashion. The gallbladder was identified and was acutely inflamed. The the fundus of the gallbladder which was retracted superiorly. The neck of the gallbladder was grasped and then retracted laterally. This splayed open the Hepatocystic triangle. Attention was then turned to taking down the peritoneal attachments and identify the cystic duct and cystic artery. Once these were skeletonized and a medial and lateral window was created between the gallbladder fossa and the duct, thereby ensuring the critical view. Then three clips were then placed distally on cystic duct one proximally on the cystic duct, it was then transected. Two clips were then placed approximately on the cystic artery one distally, the cystic artery was transected. An electrocautery hook was then used to move the gallbladder off the gallbladder fossa. There no bile spillage or no stones were spilled. The gallbladder was then placed into an Endobag and brought out through the supraumbilical incision. The pneumoperitoneum was re- established and abdomen was irrigated out until the suction fluid was clear. There were some areas on the gallbladder fossa which were raw which were cauterized. The ports were then removed and the abdomen decompressed. The fascia of the supraumbilical incision was closed with Vicryls. 0.5% Marcaine with epinephrine local was to create a local field block. Interrupted Vicryl was used to close the skin. Dermabond was used to reinforce the incisions. Sterile dressings were applied. Patient tolerated the procedure without complication and sent to the postop recovery period of observation. They will then be sent to the floor for the rest of their care. Zaida Evangelista PA-C was present and participated in the entire procedure. She was integral in skin closure, retraction, and camera manipulation. There was no qualified resident available to assist. I attest to the content of the Intraoperative Record and any orders documented therein. Any exceptions are noted below.
--- NOTE | 2024-11-08 13:41 | Anesthesiology Progress Note ---
Date of Service November 08, 2024 Anesthesia Post Procedure Vital Signs Vital Signs: Temp Pulse Pulse Pulse Resp BP BP 11/08/24 13:30 81 18 142/69 H 11/08/24 13:20 37 C 79 15 150/79 H 11/08/24 13:10 81 16 130/82 11/08/24 13:00 85 15 137/75 11/08/24 12:50 36.4 C L 87 18 152/73 H 11/08/24 11:39 36.7 C 79 20 169/91 H 11/08/24 09:16 11/08/24 07:20 36.8 C 70 16 134/71 11/07/24 21:00 11/07/24 21:00 36.5 C 79 18 152/71 H 11/07/24 20:00 78 16 107/70 11/07/24 18:59 70 16 142/84 H 11/07/24 18:40 68 19 11/07/24 18:24 72 21 11/07/24 18:20 143/72 H 11/07/24 18:20 68 11/07/24 18:06 83 25 H 11/07/24 17:54 75 16 11/07/24 17:45 78 22 11/07/24 17:36 80 25 H 154/83 H 11/07/24 17:21 86 21 11/07/24 15:42 75 18 11/07/24 15:41 153/87 H 11/07/24 15:34 11/07/24 15:24 79 16 11/07/24 15:00 82 22 136/115 H 11/07/24 14:22 77 11/07/24 13:54 37.1 C 82 20 179/87 H Pulse Ox O2 Del Method O2 Flow Rate 11/08/24 13:30 95 Nasal Cannula 2 11/08/24 13:20 97 Nasal Cannula 2 11/08/24 13:10 95 Oxymask 2 11/08/24 13:00 98 Oxymask 12 11/08/24 12:50 94 Oxymask 12 11/08/24 11:39 94 Room Air 11/08/24 09:16 Room Air 11/08/24 07:20 95 Room Air 11/07/24 21:00 Room Air 11/07/24 21:00 97 Room Air 11/07/24 20:00 94 Room Air 11/07/24 18:59 94 Room Air 11/07/24 18:40 92 Room Air 11/07/24 18:24 94 11/07/24 18:20 11/07/24 18:20 11/07/24 18:06 95 11/07/24 17:54 94 11/07/24 17:45 94 11/07/24 17:36 95 11/07/24 17:21 95 11/07/24 15:42 96 11/07/24 15:41 11/07/24 15:34 Room Air 11/07/24 15:24 96 11/07/24 15:00 95 11/07/24 14:22 11/07/24 13:54 Room Air Transfer of Care Handoff Completed per policy Notes Mental Status: alert / awake / arousable Patient Amnestic to Procedure: Yes Nausea / Vomiting: adequately controlled Pain: adequately controlled Airway Patency, RR, SpO2: stable & adequate BP & HR: stable & adequate Hydration State: stable & adequate Anesthetic Complications: no major complications apparent
[2024-11-08] MEDS ORDERED: MoRPHine SULFATE 2 MG/ML CARP IV PRN (13:44)
[2024-11-08] MEDS: oxyCODONE/ACETAMINOPHEN 5mg/325mg TAB PO PRN (14:36)
[2024-11-08] MEDS: MoRPHine SULFATE 4 MG/ML 1 ML CARP\\VIAL IV PRN (15:05)
[2024-11-08] MEDS: KETOROLAC TROMETHAMINE 15 MG/ML VIAL IV ONE (18:38)
[2024-11-08] MEDS: SIMETHICONE 80 MG CHEW PO PRN (18:38)
[2024-11-08] MEDS ORDERED: HYDROmorphone INJ 0.5 MG/0.5 ML SYR IV PRN (18:41)
[2024-11-08] MEDS: KETOROLAC TROMETHAMINE 15 MG/ML VIAL IV SCH ×2 (18:52→23:41)
--- NOTE | 2024-11-08 20:30 | Electrocardiogram Report ---
Test Reason : Blood Pressure : */* mmHG Vent. Rate : 74 BPM Atrial Rate : 74 BPM P-R Int : 202 ms QRS Dur : 82 ms QT Int : 388 ms P-R-T Axes : 45 26 50 degrees QTcB Int : 430 ms Sinus rhythm with occasional Premature ventricular complexes Otherwise normal ECG When compared with ECG of 07-Nov-2024 05:24, Premature ventricular complexes are now Present Confirmed by Damion Balbuena ([id number]) on 11/08/2024 8:30:08 PM Referred By: REFERRED SELF Confirmed By: Damion Balbuena
--- NOTE | 2024-11-08 20:30 | Electrocardiogram Report ---
Test Reason : Blood Pressure : */* mmHG Vent. Rate : 74 BPM Atrial Rate : 74 BPM P-R Int : 204 ms QRS Dur : 82 ms QT Int : 382 ms P-R-T Axes : 44 2 32 degrees QTcB Int : 424 ms Normal sinus rhythm Normal ECG No previous ECGs available Confirmed by Damion Balbuena ([id number]) on 11/08/2024 8:29:52 PM Referred By: REFERRED SELF Confirmed By: Damion Balbuena
[2024-11-08] MEDS: HYDROmorphone INJ 1 MG/ML SYRINGE IV PRN (21:33)
[2024-11-08] MEDS: PIPERACILLIN/TAZOBACTAM 4.5 GM/100 ML BAG IV SCH (23:19)
[2024-11-09] MEDS: oxyCODONE/ACETAMINOPHEN 5mg/325mg TAB PO PRN (02:59)
[2024-11-09 08:56] LABS: Basophils # (auto) 0.02 K/uL (0.00-0.20); Basophils % (auto) 0.1 %; Hematocrit (blood only) 37.1 % (37.0-47.0); Hemoglobin 12.3 g/dl (12.0-16.0); Immature Granulocytes # (auto) 0.13 K/uL (0.01-0.20); Immature Granulocytes % (auto) 0.6 %; Lymphocytes % (auto) 8.4 %; Mean Corpuscular Hemoglobin 31.2 pg (25.0-34.0); Mean Corpuscular Hgb Conc 33.2 g/dL (32.0-36.0); Mean Corpuscular Volume 94.2 fL (80.0-100.0); Mean Platelet Volume 10.1 fL (9.4-12.4); Monocytes # (auto) 1.94 K/uL (0.11-0.59); Monocytes % (auto) 9.1 %; Neutrophils # (auto) 17.52 K/uL (1.40-6.50); Neutrophils % (auto) 81.8 %; Platelet Count 248 K/uL (130-400); RDW Coefficient of Variation 13.2 % (11.5-14.5); RDW Standard Deviation 45.3 fL (36.4-46.3); Red Blood Count 3.94 M/uL (4.20-5.40); White Blood Count 21.41 K/ul (4.8-10.8)
[2024-11-09 09:27] LABS: Albumin Globulin Ratio 1.4 (0.9-2); Albumin Level 3.9 gm/dl (3.4-5.0); BUN Creatinine Ratio 17.1 (10-20); Bilirubin,Total 1.2 mg/dl (0.2-1.0); Calcium 8.9 mg/dl (8.6-10.3); Creatinine Clr Calc Pharmacy 57.2 ml/min; Globulin 2.8 gm/dl (2.5-4.0); Potassium 3.9 mmol/L (3.5-5.1); Total Protein 6.7 gm/dl (6.0-8.3)
--- NOTE | 2024-11-09 09:52 | Surgery Progress Note ---
Date of Service November 09, 2024 Assessment & Plan (1) Acute cholecystitis: Plan: POD # 1 s/p lap claudia avss Leukocytosis of 21k with t. bili 1.2 and slight bump in LFTS RUQ pain with guarding on examination , unable to take deep breaths Concern for postop bile leak given exam and labs. Stat HIDA ordered NPO continue pain management, iv fluids, iv antibiotics Addendum: Stat HIDA scan showing postop bile leak NPO GI consulted, discussed with Jf THORNTON Continue pain management continue medical management continue abx Admission and Anticipated Discharge Date Admission Date: November 07, 2024 Subjective still having a lot of pain, more in RUQ unable to take a deep breath because of pain no n,v tolerated clear liquids this am feeling short of breath unable to take deep breath Physical Exam Constitutional: WD/WN, vitals as above cooperative; no acute distress, not ill appearing and + uncomfortable looks uncomfortable when sitting up due to RUQ abdominal pain Respiratory: normal respiratory effort; no respiratory distress Gastrointestinal (Abdomen): Inspection/Auscultation: abdomen normal to inspection, + abdomen distended and + abdominal surgical incision (c/d/i with moderate ecchymosis) Percussion/Palpation: + abdomen tender (generalized tenderness but more in RUQ on mild palpation), + guarding (voluntary in RUQ) and abdomen soft; abdomen not rigid and abdomen not firm Skin: no rashes, warm and dry no jaundice Psychiatric: Orientation: alert and oriented x 3 Results & Data Vital Signs (Past 12 Hours) Vital Signs Temp Pulse Resp BP Pulse Ox O2 Del Method O2 Flow Rate 11/09/24 07:19 36.8 C 87 16 150/81 H 95 Nasal Cannula 2 11/09/24 05:12 88 18 156/92 H 95 Nasal Cannula 2 11/09/24 04:18 36.5 C 102 H 12 167/88 H 11/09/24 03:50 94 H 95 Nasal Cannula 2 11/09/24 01:34 85 95 Nasal Cannula 2 11/08/24 23:49 37.1 C 112 H 12 162/79 H 92 Nasal Cannula 3 Laboratory Results 11/09/24 Range/Units 08:32 WBC 21.41 H (4.8-10.8) K/ul RBC 3.94 L (4.20-5.40) M/uL Hgb 12.3 (12.0-16.0) g/dl Hct 37.1 (37.0-47.0) % MCV 94.2 (80.0-100.0) fL MCH 31.2 (25.0-34.0) pg MCHC 33.2 (32.0-36.0) g/dL RDW Std Deviation 45.3 (36.4-46.3) fL RDW Coeff of Feliciano 13.2 (11.5-14.5) % Plt Count 248 (130-400) K/uL MPV 10.1 (9.4-12.4) fL Immature Gran % (Auto) 0.6 % Neut % (Auto) 81.8 % Lymph % (Auto) 8.4 % Crosby % (Auto) 9.1 % Eos % (Auto) 0.0 % Baso % (Auto) 0.1 % Neut # (Auto) 17.52 H (1.40-6.50) K/uL Lymph # (Auto) 1.80 (1.20-3.40) K/uL Crosby # (Auto) 1.94 H (0.11-0.59) K/uL Eos # (Auto) 0.00 (0.00-0.50) K/uL Baso # (Auto) 0.02 (0.00-0.20) K/uL Immature Gran # (Auto) 0.13 (0.01-0.20) K/uL Sodium 140 (136-145) mmol/L Potassium 3.9 (3.5-5.1) mmol/L Chloride 103 (98-107) mmol/L Carbon Dioxide 28 (21-32) mmol/L Anion Gap 9 (3-11) BUN 14 (6-23) mg/dl Creatinine 0.82 (0.6-1.2) mg/dl Est Cr Clr Drug Dosing 57.2 ml/min eGFR 72.72 BUN/Creatinine Ratio 17.1 (10-20) Glucose 133 H (70-99(Fasting)) mg/dl Calcium 8.9 (8.6-10.3) mg/dl Total Bilirubin 1.2 H D (0.2-1.0) mg/dl AST 83 H (13-39) U/L ALT 67 H (7-52) U/L Alkaline Phosphatase 92 (34-104) U/L Total Protein 6.7 (6.0-8.3) gm/dl Albumin 3.9 (3.4-5.0) gm/dl Globulin 2.8 (2.5-4.0) gm/dl Albumin/Globulin Ratio 1.4 (0.9-2)
--- NOTE | 2024-11-09 10:29 | Hospitalist Progress Note ---
Date of Service November 09, 2024 Assessment & Plan (1) Abdominal pain: (2) Acute cholecystitis: (3) Bile leak: Plan Ashley is a 79 yr old F who has a significant PMH of HLD, Pre diabetes and osteopenia who presented to ED on 11/07 for upper abdominal pain. #Abdominal pain #Acute cholecystitis #Post operative bile leak S/P Lap Mary by Dr. Alcala, POD #1 Pt with significant post op RUQ pain, incisions w/o erythema, + ecchymosis IV toradol, prn percocet and dilaudid - giving minimal relief labs reviewed pt with wbc 22k, t bili 1.2, ast 83 and alt 67; her hgb is stable Discussed with Surgery at bedside, make NPO for hida scan to r/o bile leak HIDA shows concern for bile leak Gen Surg reached out to GI Pt to undergo ERCP and possible stenting this afternoon for bile leak Add colace BID for bowel regimen #Hypoxia: suspect in setting of RUQ pain/guarding, continue to encourage Incentive spirometry and pain control, will encourage ambulation once medical work up complete #Abnormal Pelvic Imaging: Left adrenal nodule 15 x 11 mm and focal fluid or simple cyst in the endometrial cavity measuring 0.7 x 1.3 cm. Patient and her made aware of the findings. They are made aware to follow this up as an outpatient with dedicated imaging for left adrenal nodule and gynecology evaluation for endometrial cyst. #Other chronic medical conditions: HLD, continue with home medications. Hold multivitamins for now. #DVT prophylaxis: SCDs for now, consider adding lovenox tomorrow if to remain hospitalized at stable from a surg/GI standpoint Full code PCP: Dr. Lindsay Dispo: Pt not yet medically stable for discharge, doubt today, currently working up for bile leak, will consult PT/OT Pt was seen and examined in collaboration with Dr. Aldridge please see addendum. I spent a total of 60 minutes coordinating, documenting and providing care for this patient excluding time spent in the performance of separately billed services or time spent by another provider/QHP. Pt at bedside and was updated regarding pt current condition, assessment and tx plan. Admission and Anticipated Discharge Date Admission Date: November 07, 2024 Supervising Physician Co-Signing Physician Notes Patient in HIDA scan on attempt to evaluate patient. HIDA scan indicates biliary duct leak. ERCP revealed cystic stump biliary leak, and stent was placed. Appreciate surgery and GI input, will continue to closely monitor patient post ERCP. I have seen and discussed the case with the collaborating advanced practitioner. I agree with the above H&P. I have reviewed and confirmed the patients medical history, the findings on physical examination, and the patients diagnosis and treatment plan with Izabella Hood PA-C and agree with the information documented. I spent a total of 20 minutes coordinating, documenting, and providing care for this patient excluding time spent in the performance of separately billed services. All of the aforementioned completed outside of collaborating with the assigned advanced practitioner for a full treatment plan. I have reviewed the advanced practitioner's documentation, and I agree with, and take responsibility for the plan of care Subjective Pt seen in room 352-2. She reports significant RUQ pain. She states she, "made it through the night." She states with minimal movement she gets severe sharp RUQ pain. She is having a hard time taking a deep breath b/c of the pain. She has been using prn pain medications with mild relief. She has not been passing gas. She feels distended. She tolerated clears for breakfast. She denies f/c/s, chest pain, sob, cough, n/v. She feels like maybe she could have a bowel movement. Review of Systems Review of Systems: All systems reviewed & are unremarkable except as noted in HPI & below Physical Exam Physical Exam: Gen: WD/WN, NAD, A&O x3 HEENT: Normocephalic, atraumatic, conjunctivae moist, sclerae anicteric, mucous membranes moist. Lung: Clear to Auscultation bilaterally, poor insp effort due to pain, guarding to RUQ, no wheezes/rales/rhonchi Heart: Regular rate, regular rhythm, no murmurs, rubs, or gallops Abdomen: Soft, distended abd, TTP RUQ, guarding, hypoactive BS throughout, +lap incisions 4, no erythema, +ecchymosis Extremities: No edema Skin: Warm, no rash, negative turgor. Results & Data Results & Data Vital Signs (Past 12 Hours) Vital Signs Temp Pulse Resp BP Pulse Ox O2 Del Method O2 Flow Rate 11/09/24 07:19 36.8 C 87 16 150/81 H 95 Nasal Cannula 2 04/11/25 05:12 88 18 156/92 H 95 Nasal Cannula 2 11/09/24 04:18 36.5 C 102 H 12 167/88 H 11/09/24 03:50 94 H 95 Nasal Cannula 2 11/09/24 01:34 85 95 Nasal Cannula 2 11/08/24 23:49 37.1 C 112 H 12 162/79 H 92 Nasal Cannula 3 Laboratory Results I have independently reviewed and interpreted patient's admitting labs including CBC, CMP. Short CBC 11/09/24 Range/Units 08:32 WBC 21.41 H (4.8-10.8) K/ul Hgb 12.3 (12.0-16.0) g/dl Hct 37.1 (37.0-47.0) % Plt Count 248 (130-400) K/uL BMP 11/08/24 11/09/24 10:01 08:32 Sodium 140 Potassium 4.1 3.9 Chloride 103 Carbon Dioxide 28 BUN 14 Creatinine 0.82 Glucose 133 H Calcium 8.9 Liver Function 11/08/24 11/09/24 Range/Units 10:01 08:32 Total Bilirubin 1.2 H D (0.2-1.0) mg/dl Direct Bilirubin 0.1 (0-0.2) mg/dl AST 23 83 H (13-39) U/L ALT 67 H (7-52) U/L Alkaline Phosphatase 92 (34-104) U/L Albumin 3.9 (3.4-5.0) gm/dl Medications Administered Current Inpatient Medications Acetaminophen (Acetaminophen 325 Mg Tab) 650 mg PO Q4H PRN PRN Reason: pain/fever Stop: 12/07/24 18:14 Hydromorphone HCl (Hydromorphone Inj 0.5 Mg/0.5 Ml Syr) 0.5 mg IV Q3H PRN PRN Reason: Moderate Pain (Scale 4, 5, 6) Stop: 11/22/24 18:40 Hydromorphone HCl (Hydromorphone Inj 1 Mg/Ml Syringe) 1 mg IV Q3H PRN PRN Reason: Severe Pain (Scale 7, 8, 9,10) Stop: 11/22/24 18:40 Last Admin: 11/08/24 21:33 Dose: 1 mg Piperacillin Sod/Tazobactam Sod (Zosyn) 4.5 gm in 100 mls @ 25 mls/hr IV Q8H ALMA; Protocol Stop: 11/19/24 13:59 Ketorolac Tromethamine (Ketorolac Tromethamine 15 Mg/Ml Vial) 15 mg IV Q6H ALMA Stop: 11/11/24 00:00 Last Admin: 11/09/24 05:41 Dose: 15 mg Ondansetron HCl (Ondansetron Inj 2 Mg/Ml 2 Ml Vial) 4 mg IV Q6H PRN PRN Reason: Nausea Stop: 12/07/24 19:59 Oxycodone/Acetaminophen (Oxycodone/Acetaminophen 5mg/325mg Tab) 1 tab PO Q4H PRN PRN Reason: MODERATE Pain (4,5,6) & Pre PT Stop: 11/22/24 13:43 Last Admin: 11/09/24 08:51 Dose: 1 tab Oxycodone/Acetaminophen (Oxycodone/Acetaminophen 5mg/325mg Tab) 2 tab PO Q4H PRN PRN Reason: SEVERE Pain (7,8,9,10) Stop: 11/22/24 13:43 Last Admin: 11/09/24 02:59 Dose: 2 tab Simethicone (Simethicone 80 Mg Chew) 80 mg PO Q6H PRN PRN Reason: Flatulence Stop: 12/08/24 18:23 Last Admin: 11/09/24 03:20 Dose: 80 mg
--- NOTE | 2024-11-09 11:49 | Nuclear Medicine Report ---
NUCLEAR MEDICINE HEPATOBILIARY SCAN CLINICAL HISTORY: Right upper quadrant pain status post laparoscopic cholecystectomy. Evaluate for b ile leak. COMPARISON: CT of the abdomen and pelvis and right upper quadrant ultrasound November 07, 2024. TECHNIQUE: 5.5 mCi of technetium 99m Choletec IV was injected at 10:37 AM on November 09, 2024. Immedi ately following injection, imaging of the abdomen was carried out for 60 minutes in the anterior proj ection. FINDINGS: Hepatic uptake of radiotracer is prompt and homogeneous. Small bowel activity is noted at 15 minutes. There is abnormal accumulation of radiotracer within the iveth hepatis, cholecystectomy b ed and along the right hepatic lobe. These findings indicate a bile leak. IMPRESSION: Scintigraphic findings consistent with a bile leak. ACT 112: Negative or not required by law. Electronically signed by: Avinash Bruno M.D. 11/09/2024 11:48 AM
--- NOTE | 2024-11-09 13:05 | Gastrointestinal Consultation ---
Date of Consultation November 09, 2024 Assessment & Plan (1) Bile leak: Discussed case with Dr. Roth. Patient will need ERCP for further evaluate/stenting. Risks/benefits discussed and she is agreeable to having done. - proceed with ERCP today. Supervising Physician Co-Signing Physician Notes I saw and examined this patient with our nurse practitioner and agree with her assessment and plan. Clinical picture consistent with bile leak postcholecystectomy. Confirmed by HIDA scan. Proceed with ERCP and stent placement. History of Present Illness Reason for Consultation: bile leak Requesting Physician: Zaida Evangelista PAC Attending Physician: Mark Aldridge MD History of Present Illness Patient is a 79 year old female who has a significant past medical history of HLD, Prediabetic, and osteopenia who presented to ED on 11/07 for upper abdominal pain. She underwent a cholecystectomy on 11/08. she woke up today with some worsening pain, leukocytosis, and some worse LFTs. HIDA scan consistent with a bile leak. 11/09/24 T bili 1.2, AST 83, ALT 63, ALK 92, wbc 21.4. Allergies Allergy/AdvReac Type Severity Reaction Status Date / Time No Known Allergies Allergy Verified 11/07/24 19:47 Home Medications Medication Instructions Recorded Confirmed Type calcium 600 mg (as 1 tab PO BID 08/15/24 11/07/24 History carbonate)-vitamin D3 5 mcg (200 unit) tablet calcium polycarbophil 625 mg tablet 1,875 mg PO HS 08/15/24 11/07/24 History cholecalciferol (vitamin D3) 50 50 mcg PO QAM 08/15/24 11/07/24 History mcg (2,000 unit) tablet (Vitamin D3) fish, borage, flaxseed oils-omega 1 cap PO QAM 08/15/24 11/07/24 History 3,6,9 cb #1 400 mg-400 mg-400 mg cap (Triple [place] 3-6-9) glucosamine sulf dipot 1 cap PO QAM 08/15/24 11/07/24 History chlr,msm,chond 550 mg-C 30 mg-manfred 1 mg capsule (Glucosamine Chondroitin) multivitamin 1 tab PO QAM 08/15/24 11/07/24 History atorvastatin 20 mg tablet 20 mg PO QAM 11/07/24 11/07/24 History grape seed extract 50 mg capsule 0 mg PO QAM 11/07/24 11/07/24 History Patient History Medical History Sciatica of left side Fell Aug 2023, just completed physical therapy Surgical History H/O right cataract extraction History of colonoscopy Family History Other No family history of adverse response to anesthesia Social History Smoking Status: Former smoker Second Hand Exposure: No; Do You Dip or Chew Tobacco: No; Tobacco Cessation Education Requested by Patient: No Hx Alcohol Use: No Hx Substance Use: No Preferred Language: Yakut Communication Ability: Effective Production Coordinator Required: No Beliefs That Will Affect Care: None Current Living Situation: Spouse Other Information That Helps Us Care for You: No Feels Safe at Home: Yes Safety Concerns: Feels Safe At This Time Assistive Devices: Cane and Walker Assistive Devices Comment: cane when in pain Review of Systems Review of Systems: All systems reviewed & are unremarkable except as noted in HPI & below Physical Exam Constitutional: WD/WN, vitals as above Respiratory: normal respiratory effort, lungs clear to auscultation Cardiovascular: Rate/Rhythm: regular rate and regular rhythm Gastrointestinal (Abdomen): RUQ tenderness, no guarding, soft, decreased bowel sounds. Psychiatric: Orientation: alert and oriented x 3 Results & Data Vital Signs (Past 12 Hours) Vital Signs Temp Pulse Resp BP Pulse Ox O2 Del Method O2 Flow Rate 11/09/24 07:19 98.2 F 87 16 150/81 H 95 Nasal Cannula 2 11/09/24 05:12 88 18 156/92 H 95 Nasal Cannula 2 11/09/24 04:18 97.7 F 102 H 12 167/88 H 11/09/24 03:50 94 H 95 Nasal Cannula 2 11/09/24 01:34 85 95 Nasal Cannula 2 Laboratory Results Laboratory Results - last 48 hr 11/07/24 11/07/24 11/07/24 14:36 15:40 16:53 WBC 15.76 H RBC 4.32 Hgb 13.3 Hct 40.3 MCV 93.3 MCH 30.8 MCHC 33.0 RDW Std Deviation 44.1 RDW Coeff of [place] 12.9 Plt Count 245 MPV 10.1 Immature Gran % (Auto) 0.4 Neut % (Auto) 79.8 Lymph % (Auto) 12.7 [place] % (Auto) 6.0 Eos % (Auto) 0.6 Baso % (Auto) 0.5 Neut # (Auto) 12.57 H Lymph # (Auto) 2.00 [place] # (Auto) 0.95 H Eos # (Auto) 0.09 Baso # (Auto) 0.08 Immature Gran # (Auto) 0.07 PT Cancelled 10.5 INR Cancelled 1.0 Sodium 138 Potassium TNP 3.9 Chloride 104 Carbon Dioxide 27 Anion Gap 7 BUN 15 Creatinine 0.72 Est Cr Clr Drug Dosing Not Reportable eGFR 85.00 BUN/Creatinine Ratio 20.8 H Glucose 108 H Lactate 2.2 H* Calcium 9.4 Phosphorus Magnesium Total Bilirubin 0.4 Direct Bilirubin AST TNP 21 ALT 23 Alkaline Phosphatase 80 Troponin I High Sens < 2.3 Total Protein 7.5 Albumin 4.4 Globulin 3.1 Albumin/Globulin Ratio 1.4 Lipase 25 Urine Color Urine Appearance Urine pH Ur Specific [place] Urine Protein Urine Glucose (UA) Urine Ketones Urine Blood Urine Nitrite Urine Bilirubin Urine Urobilinogen Ur Leukocyte Esterase SARS-CoV-2 (PCR) NEGATIVE Influenza Type A (PCR) Negative Influenza Type B (PCR) Negative RSV (RT-PCR) Negative 11/07/24 11/08/24 11/08/24 18:18 06:34 07:25 WBC 9.90 RBC 3.82 L Hgb 11.9 L Hct 35.6 L MCV 93.2 MCH 31.2 MCHC 33.4 RDW Std Deviation 45.1 RDW Coeff of [place] 13.2 Plt Count 222 MPV 10.2 Immature Gran % (Auto) Neut % (Auto) Lymph % (Auto) [place] % (Auto) Eos % (Auto) Baso % (Auto) Neut # (Auto) Lymph # (Auto) [place] # (Auto) Eos # (Auto) Baso # (Auto) Immature Gran # (Auto) PT INR Sodium 140 Potassium TNP Chloride 107 Carbon Dioxide 28 Anion Gap 5 BUN 13 Creatinine 0.77 Est Cr Clr Drug Dosing 60.9 eGFR 78.42 BUN/Creatinine Ratio 16.9 Glucose 97 Lactate 1.8 Calcium 8.6 Phosphorus 3.5 Magnesium 1.9 Total Bilirubin 0.6 Direct Bilirubin TNP AST TNP ALT 21 Alkaline Phosphatase 75 Troponin I High Sens Total Protein 6.2 Albumin 3.6 Globulin Albumin/Globulin Ratio Lipase Urine Color Yellow Urine Appearance Clear Urine pH 6.0 Ur Specific [place] 1.019 Urine Protein Negative Urine Glucose (UA) Negative Urine Ketones Negative Urine Blood Negative Urine Nitrite Negative Urine Bilirubin Negative Urine Urobilinogen Negative Ur Leukocyte Esterase Negative SARS-CoV-2 (PCR) Influenza Type A (PCR) Influenza Type B (PCR) RSV (RT-PCR) 11/08/24 11/09/24 10:01 08:32 WBC 21.41 H RBC 3.94 L Hgb 12.3 Hct 37.1 MCV 94.2 MCH 31.2 MCHC 33.2 RDW Std Deviation 45.3 RDW Coeff of [place] 13.2 Plt Count 248 MPV 10.1 Immature Gran % (Auto) 0.6 Neut % (Auto) 81.8 Lymph % (Auto) 8.4 [place] % (Auto) 9.1 Eos % (Auto) 0.0 Baso % (Auto) 0.1 Neut # (Auto) 17.52 H Lymph # (Auto) 1.80 [place] # (Auto) 1.94 H Eos # (Auto) 0.00 Baso # (Auto) 0.02 Immature Gran # (Auto) 0.13 PT INR Sodium 140 Potassium 4.1 3.9 Chloride 103 Carbon Dioxide 28 Anion Gap 9 BUN 14 Creatinine 0.82 Est Cr Clr Drug Dosing 57.2 eGFR 72.72 BUN/Creatinine Ratio 17.1 Glucose 133 H Lactate Calcium 8.9 Phosphorus Magnesium Total Bilirubin 1.2 H D Direct Bilirubin 0.1 AST 23 83 H ALT 67 H Alkaline Phosphatase 92 Troponin I High Sens Total Protein 6.7 Albumin 3.9 Globulin 2.8 Albumin/Globulin Ratio 1.4 Lipase Urine Color Urine Appearance Urine pH Ur Specific [place] Urine Protein Urine Glucose (UA) Urine Ketones Urine Blood Urine Nitrite Urine Bilirubin Urine Urobilinogen Ur Leukocyte Esterase SARS-CoV-2 (PCR) Influenza Type A (PCR) Influenza Type B (PCR) RSV (RT-PCR) Diagnostic Findings Hepatobiliary Scan Nuclear Medicine 11/09/24 09:51 NUCLEAR MEDICINE HEPATOBILIARY SCAN CLINICAL HISTORY: Right upper quadrant pain status post laparoscopic cholecystectomy. Evaluate for bile leak. COMPARISON: CT of the abdomen and pelvis and right upper quadrant ultrasound November 07, 2024. TECHNIQUE: 5.5 mCi of technetium 99m Choletec IV was injected at 10:37 AM on November 09, 2024. Immediately following injection, imaging of the abdomen was carried out for 60 minutes in the anterior projection. FINDINGS: Hepatic uptake of radiotracer is prompt and homogeneous. Small bowel activity is noted at 15 minutes. There is abnormal accumulation of radiotracer within the iveth hepatis, cholecystectomy bed and along the right hepatic lobe. These findings indicate a bile leak. IMPRESSION: Scintigraphic findings consistent with a bile leak. ACT 112: Negative or not required by law. Electronically signed by: Avinash Bruno M.D. 11/09/2024 11:48 AM Coding Level of Care Code 38831 INT INP/OBS CARE 2/55MIN Diagnoses Bile leak K83.9
--- NOTE | 2024-11-09 13:47 | Anesthesiology Consultation ---
Date of Service November 09, 2024 Assessment & Plan Chart Review Chart Review: Acceptable Risk for Surgery and Patient NOT seen in Pre Admission Testing History Surgery Operation Date: 11/08/24 08:20 Proposed Procedures p Laparoscopic Cholecystectomy - Jacob Alcala MD Operation Date: 11/09/24 10:35 Proposed Procedures p Endoscopic Retrograde Cholangiopancreatogram - Hector Roth MD Height/Weight Height: 5 ft 2 in Weight: 87.543 kg Allergies Allergy/AdvReac Type Severity Reaction Status Date / Time No Known Allergies Allergy Verified 11/07/24 19:47 Medications Home Medications Medication Instructions Recorded Confirmed Last Taken calcium 600 mg (as 1 tab PO BID 08/15/24 11/07/24 09/03/24 carbonate)-vitamin D3 5 mcg (200 unit) tablet calcium polycarbophil 625 mg tablet 1,875 mg PO HS 08/15/24 11/07/24 09/03/24 cholecalciferol (vitamin D3) 50 50 mcg PO QAM 08/15/24 11/07/24 09/03/24 mcg (2,000 unit) tablet (Vitamin D3) fish, borage, flaxseed oils-omega 1 cap PO QAM 08/15/24 11/07/24 09/03/24 3,6,9 cb #1 400 mg-400 mg-400 mg cap (Triple [place] 3-6-9) glucosamine sulf dipot 1 cap PO QAM 08/15/24 11/07/24 09/03/24 chlr,msm,chond 550 mg-C 30 mg-manfred 1 mg capsule (Glucosamine Chondroitin) multivitamin 1 tab PO QAM 08/15/24 11/07/24 09/03/24 atorvastatin 20 mg tablet 20 mg PO QAM 11/07/24 11/07/24 Unknown grape seed extract 50 mg capsule 0 mg PO QAM 11/07/24 11/07/24 Unknown Active Medications Generic Name Dose Route Start Last Admin Trade Name Freq PRN Reason Stop Dose Admin Hydromorphone HCl 1 mg 11/08/24 18:41 11/08/24 21:33 Hydromorphone Inj 1 Mg/Ml Syringe IV 11/22/24 18:40 1 mg Q3H PRN Administration Severe Pain (Scale 7, 8, 9,10) Oxycodone/Acetaminophen 1 tab 11/08/24 13:44 11/09/24 08:51 Oxycodone/Acetaminophen 5mg/325mg Tab PO 11/22/24 13:43 1 tab Q4H PRN Administration MODERATE Pain (4,5,6) & Pre PT Oxycodone/Acetaminophen 2 tab 11/08/24 13:44 11/09/24 02:59 Oxycodone/Acetaminophen 5mg/325mg Tab PO 11/22/24 13:43 2 tab Q4H PRN Administration SEVERE Pain (7,8,9,10) Simethicone 80 mg 11/08/24 18:24 11/09/24 03:20 Simethicone 80 Mg Chew PO 12/08/24 18:23 80 mg Q6H PRN Administration Flatulence NPO Date Last Intake of Fluids: 11/07/24 Time Last Intake of Fluids: 23:50 Date Last Intake of Solids: 11/07/24 Time Last Intake of Solids: 20:00 Past Medical History Medical History Sciatica of left side Fell Aug 2023, just completed physical therapy Past Family History Family History Other No family history of adverse response to anesthesia Past Surgical History Surgical History H/O right cataract extraction History of colonoscopy Social History Smoking Status: Former smoker Do You Dip or Chew Tobacco: No Hx Alcohol Use: No Hx Substance Use: No substance use type: does not use Physical Exam Vital Signs Last Vital Signs Temp 36.8 C 11/09/24 07:19 Pulse 87 11/09/24 07:19 Resp 16 11/09/24 07:19 BP 150/81 H 11/09/24 07:19 Pulse Ox 95 11/09/24 07:19 O2 Del Method Nasal Cannula 11/09/24 07:19 O2 Flow Rate 2 11/09/24 07:19 Testing Laboratory Results 11/09/24 08:32 11/09/24 08:32 PT 10.5 Seconds (9.0-12.0) 11/07/24 16:53 INR 1.0 (0.9-1.1) 11/07/24 16:53 Urine Color Yellow 11/08/24 07:25 Urine Appearance Clear (Clear) 11/08/24 07:25 Urine pH 6.0 (4.5-7.5) 11/08/24 07:25 Ur Specific [place] 1.019 (1.000-1.030) 11/08/24 07:25 Urine Protein Negative (Negative) 11/08/24 07:25 Urine Glucose (UA) Negative (Negative) 11/08/24 07: Urine Ketones Negative (Negative) 11/08/24 07: Urine Nitrite Negative (Negative) 11/08/24 07:25 Ur Leukocyte Esterase Negative (Negative) 11/08/24 07:25 11/07/24 17:06 Aerobic Blood Culture - Preliminary Blood No growth in Aerobic bottle after 24 hours. Anaerobic Blood Culture - Final 11/07/24 16:53 Aerobic Blood Culture - Preliminary Blood No growth in Aerobic bottle after 24 hours. Anaerobic Blood Culture - Final Electrocardiogram Date: 11/07/24 Findings: + NSR @ (@ 74 w/ occas. PVC's) Chest X-Ray Date: 11/07/24 Findings: + NAD and + atherosclerosis of thoracic aorta
[2024-11-09] MEDS ORDERED: LIDOCAINE 2% 2 ML VIAL/AMP(20MG/ML) INFIL ONE ×2 (13:50)
[2024-11-09] MEDS ORDERED: PROPOFOL IV EMULSION 10 MG/ML 20 ML VIAL IV ONE (13:51)
[2024-11-09] MEDS ORDERED: ROCURONIUM BROMIDE 10 MG/ML 5 ML VIAL IV ONE (13:51)
[2024-11-09] MEDS ORDERED: ONDANSETRON INJ 2 MG/ML 2 ML VIAL ONE ×2 (13:52)
[2024-11-09] MEDS ORDERED: DEXAMETHASONE SOD INJ 4 MG/ML VIAL ONE ×2 (13:52)
[2024-11-09] MEDS ORDERED: fentaNYL citrate PF 100 MCG/2 ML VIAL ONE (14:02)
[2024-11-09] MEDS ORDERED: ATROPINE SULFATE 0.1 MG/ML 10ML SYR IV PRN (14:02)
[2024-11-09] MEDS: PIPERACILLIN/TAZOBACTAM 4.5 GM/100 ML BAG IV SCH (14:02)
[2024-11-09] MEDS ORDERED: ePHEDrine sulfate 50 MG/ML AMP IV PRN (14:02)
[2024-11-09] MEDS ORDERED: HYDROmorphone INJ 1 MG/ML SYRINGE IV PRN (14:02)
[2024-11-09] MEDS ORDERED: PROMETHAZINE HCL 6.25 MG in SODIUM CHLORIDE 0.9% 50 ML IV PRN (14:02)
[2024-11-09] MEDS ORDERED: ONDANSETRON INJ 2 MG/ML 2 ML VIAL IV PRN (14:02)
[2024-11-09] MEDS ORDERED: fentaNYL citrate PF 100 MCG/2 ML VIAL IV PRN (14:02)
[2024-11-09] MEDS: INDOMETHACIN 50 MG SUPP PR ONE ×2 (14:40→16:25)
[2024-11-09] MEDS ORDERED: PHENYLEPHRINE 100MCG/ML 5ML SYR ONE (14:46)
[2024-11-09] MEDS ORDERED: SUGAMMADEX SODIUM 200 MG/2 ML VIAL IV ONE (14:47)
--- NOTE | 2024-11-09 15:49 | Fluoroscopy Report ---
ERCP CLINICAL HISTORY: ERCP. Bile leak. COMPARISON: CT of the abdomen and pelvis and right upper quadrant ultrasound November 07, 2024. [facility] hepatobiliary study November 09, 2024. FLUOROSCOPY TIME: 2 minutes and 27 seconds NUMBER OF FLUOROSCOPIC IMAGES: 6 Ka,r: 18.313 mGy. FINDINGS: Fluoroscopy was provided during ERCP. Common bile duct was cannulated. Biliary tree is part ially opacified. Contrast extravasation from the cystic duct stump indicates a bile leak. Subsequent images demonstrate placement of a common bile duct stent. IMPRESSION: Fluoroscopy provided during ERCP with placement of a common bile duct stent. Electronically signed by: Avniash Bruno M.D. 11/09/2024 3:47 PM
--- NOTE | 2024-11-09 15:55 | Anesthesiology Progress Note ---
Date of Service November 09, 2024 Anesthesia Post Procedure Vital Signs Vital Signs: Temp Pulse Pulse Resp BP Pulse Ox O2 Del Method 11/09/24 15:50 36.9 C 80 17 150/84 H 93 Nasal Cannula 11/09/24 15:40 83 18 136/99 92 Nasal Cannula 11/09/24 15:30 89 16 154/85 H 92 Room Air 11/09/24 15:20 93 H 19 114/89 92 Oxymask 11/09/24 15:13 37.3 C 82 15 148/77 H 95 Oxymask 11/09/24 14:28 Nasal Cannula 11/09/24 13:55 36.7 C 90 16 166/104 H 95 Nasal Cannula 11/09/24 07:19 36.8 C 87 16 150/81 H 95 Nasal Cannula 11/09/24 05:12 88 18 156/92 H 95 Nasal Cannula 11/09/24 04:18 36.5 C 102 H 12 167/88 H 11/09/24 03:50 94 H 95 Nasal Cannula 11/09/24 01:34 85 95 Nasal Cannula 11/08/24 23:49 37.1 C 112 H 12 162/79 H 92 Nasal Cannula 11/08/24 21:25 Room Air 11/08/24 20:03 37.0 C 94 H 14 133/81 94 Room Air 11/08/24 17:15 36.9 C 100 H 19 177/97 H 93 Nasal Cannula 11/08/24 16:03 36.8 C 83 17 145/82 H 96 Nasal Cannula O2 Flow Rate 11/09/24 15:50 2 11/09/24 15:40 2 11/09/24 15:30 0 11/09/24 15:20 8 11/09/24 15:13 8 11/09/24 14:28 2 11/09/24 13:55 2 11/09/24 07:19 2 11/09/24 05:12 2 11/09/24 04:18 11/09/24 03:50 2 11/09/24 01:34 2 11/08/24 23:49 3 11/08/24 21:25 11/08/24 20:03 11/08/24 17:15 2 11/08/24 16:03 2 Pain Intensity Abdomen: Pain Intensity: 8 Transfer of Care Handoff Completed per policy Notes Mental Status: alert / awake / arousable Patient Amnestic to Procedure: Yes Nausea / Vomiting: adequately controlled Pain: adequately controlled Airway Patency, RR, SpO2: stable & adequate BP & HR: stable & adequate Hydration State: stable & adequate Anesthetic Complications: no major complications apparent and Pt Satisfied with anesthetic care
--- NOTE | 2024-11-09 16:26 | GI REPORT ---
[facility] Patient: KAYY ARORA : 1945 Sex at : Female Age: 79 Years Procedure: ERCP Date: 11/09/2024 Attending Physician: Hector Roth MD Referring MD: Mark Aldridge MD Indications: - Bile leak post-cholecystectomy Medications: - General Anesthesia - Indomethacin 100 mg SD - See the Anesthesia note for documentation of the administered medications Complications: - No immediate complications. Estimated Blood Loss: - Estimated blood loss was minimal. Procedure: - Prior to the procedure, a History and Physical was performed, and patient medications, allergies and sensitivities were reviewed. The patient's tolerance of previous anesthesia was reviewed. - Patient identification and proposed procedure were verified prior to the procedure by the physician. The procedure was verified in the procedure room. - The anesthesia plan was to use general anesthesia. - The ercp scope was introduced through the mouth and advanced to the duodenum and used to inject contrast into the bile duct. - The ERCP was accomplished without difficulty. - The patient tolerated the procedure well. Findings: - The bile duct was deeply cannulated. Contrast was injected. I personally interpreted the bile duct images. Image quality was adequate. Extravasation of contrast originating from the cystic duct was observed. - A biliary sphincterotomy was made with a [Sphincterotome]. There was no post-sphincterotomy bleeding. - One 10 Fr by 7 cm plastic stent was placed into the common bile duct. Bile flowed through the stent. The stent was in good position. Impression: - A bile leak was found at cyst duct stump. - A biliary sphincterotomy was performed. - One plastic stent was placed into the common bile duct. - The major papilla appeared abnormal. Recommendation: - Clear liquid diet. - Continue present medications. Remove stent in 4-6 weeks. Procedure Code(s): - 42064, Endoscopic retrograde cholangiopancreatography (ERCP); with placement of endoscopic stent into biliary or pancreatic duct, including pre- and post-dilation and guide wire passage, when performed, including sphincterotomy, when performed, each stent - 52864, Endoscopic catheterization of the biliary ductal system, radiological supervision and interpretation Diagnosis Code(s): - K83.9, Disease of biliary tract, unspecified - K83.8, Other specified diseases of biliary tract CPT(R) - 2022 copyright [employer]. All Rights Reserved. The CPT codes, CCI edits and ICD codes generated are intended as suggestions and were generated based on input data. These codes are preliminary and upon carton and can supply supervisor review may be revised to meet current compliance and payer requirements. The provider is responsible for the final determination of appropriate codes, and modifiers. Hector Roth MD This document has been electronically signed. Note Initiated:11/09/2024 Note Completed:11/09/2024 4:26 PM [id number]
[2024-11-09] MEDS: GLUCAGON FOR INJ 1 MG VIAL ONE (17:04)
[2024-11-09] MEDS: DOCUSATE SODIUM 100 MG CAP PO SCH (21:07)
[2024-11-09] MEDS: KETOROLAC TROMETHAMINE 15 MG/ML VIAL IV PRN (21:13)
[2024-11-10 06:48] LABS: Basophils # (auto) 0.02 K/uL (0.00-0.20); Basophils % (auto) 0.1 %; Hematocrit (blood only) 31.2 % (37.0-47.0); Hemoglobin 10.5 g/dl (12.0-16.0); Immature Granulocytes # (auto) 0.08 K/uL (0.01-0.20); Immature Granulocytes % (auto) 0.5 %; Lymphocytes # (auto) 1.56 K/uL (1.20-3.40); Lymphocytes % (auto) 10.4 %; Mean Corpuscular Hemoglobin 31.3 pg (25.0-34.0); Mean Corpuscular Hgb Conc 33.7 g/dL (32.0-36.0); Mean Corpuscular Volume 93.1 fL (80.0-100.0); Mean Platelet Volume 10.6 fL (9.4-12.4); Monocytes # (auto) 1.33 K/uL (0.11-0.59); Monocytes % (auto) 8.9 %; Neutrophils # (auto) 11.95 K/uL (1.40-6.50); Neutrophils % (auto) 80.1 %; Platelet Count 195 K/uL (130-400); RDW Coefficient of Variation 13.4 % (11.5-14.5); RDW Standard Deviation 45.4 fL (36.4-46.3); Red Blood Count 3.35 M/uL (4.20-5.40); White Blood Count 14.94 K/ul (4.8-10.8)
[2024-11-10 07:09] LABS: Albumin Globulin Ratio 1.3 (0.9-2); Albumin Level 3.3 gm/dl (3.4-5.0); BUN Creatinine Ratio 21.1 (10-20); Bilirubin,Total 1.4 mg/dl (0.2-1.0); Calcium 8.4 mg/dl (8.6-10.3); Creatinine Clr Calc Pharmacy 61.7 ml/min; Globulin 2.6 gm/dl (2.5-4.0); Potassium 3.8 mmol/L (3.5-5.1); Total Protein 5.9 gm/dl (6.0-8.3)
--- NOTE | 2024-11-10 09:45 | Gastroenterology Progress Note ---
Date of Service November 10, 2024 Assessment & Plan (1) Bile leak: Plan: Status post successful placement of biliary stent. No significant change in bilirubin and transaminases. The patient is doing well. Recommend to advance diet. Planning for biliary stent removal in several weeks. Follow-up appointment will be arranged through the GI office. Admission and Anticipated Discharge Date Admission Date: November 07, 2024 Subjective Biliary leak, status post cholecystectomy. Status post successful biliary stent placement yesterday. The patient feels well, denies abdominal pain. Tolerates liquid diet. Not much change in bilirubin, currently 1.4, yesterday 1.2. Mildly elevated transaminases. Review of Systems Review of Systems: Constitutional: Denies weight loss, chills, fever, fatigue. Respiratory: Denies cough, denies shortness of breath. Cardiovascular: Denies chest pain and palpitations. Gastrointestinal: Denies nausea, vomiting, diarrhea, constipation, abdominal pain. Physical Exam Physical Exam: Constitutional: WD/WN, vitals as above Respiratory: normal respiratory effort, lungs clear to auscultation Cardiovascular: RRR, no murmur, no edema Gastrointestinal (Abdomen): normal bowel sounds, soft, nontender, no hepatosplenomegaly. Neurological: Oriented x 3, grossly no focal abnormalities, speech is intact. Results & Data Results & Data Vital Signs (Past 12 Hours) Vital Signs Temp Pulse Resp BP Pulse Ox O2 Del Method O2 Flow Rate 11/10/24 07:05 36.8 C 74 18 121/74 95 Nasal Cannula 11/10/24 04:38 36.8 C 79 12 118/72 92 Nasal Cannula 2 11/10/24 01:56 36.7 C 77 12 115/71 92 Nasal Cannula 2 11/09/24 22:38 36.9 C 87 12 138/76 92 Nasal Cannula 2 Laboratory Results Reviewed PG Care Time/CCT Total # of Minutes Spent Total Time Spent with Patient: Total time spent is greater than 50% in coordination of care (as documented) at patient's floor/unit and/or counseling patient: Coding Level of Care Code 84489 SUB INP/OBS CARE 2/35MIN Diagnoses Bile leak K83.9
--- NOTE | 2024-11-10 10:38 | Surgery Progress Note ---
Date of Service November 10, 2024 Assessment & Plan (1) Bile leak: (2) Acute cholecystitis: Plan: POD 2 lap claudia POD 1 ERCP with stent placement Afebrile HD stable Leukocytosis improving down to 14.94 this am from 21.41 LFTs slightly bumped this am and T bili 1.4 from 1.2 yesterday H/H decreased to 10.5/31.2 today from 12.3/37.1 May advance to a lo fat diet Follow up am H/H to confirm stability and LFTs to confirm these are starting to trend down. If labs are acceptable in the am, the patient may be discharged in the am with follow up to GI and Dr. Alcala Admission and Anticipated Discharge Date Admission Date: November 07, 2024 Subjective Pt feels well this am. No significant pain, tolerating oral intake without nausea. Physical Exam Constitutional: healthy appearing; not ill appearing, not in distress and not diaphoretic Respiratory: normal respiratory effort; no respiratory distress, no labored breathing and does not use accessory muscles Gastrointestinal (Abdomen): Normal post op abdomen Results & Data Vital Signs (Past 12 Hours) Vital Signs Temp Pulse Resp BP Pulse Ox O2 Del Method O2 Flow Rate 11/10/24 07:05 36.8 C 74 18 121/74 95 Nasal Cannula 11/10/24 04:38 36.8 C 79 12 118/72 92 Nasal Cannula 2 11/10/24 01:56 36.7 C 77 12 115/71 92 Nasal Cannula 2 11/09/24 22:38 36.9 C 87 12 138/76 92 Nasal Cannula 2 Results Complete Blood Count Results: RBC 3.35 M/uL (4.20-5.40) L 11/10/24 WBC 14.94 K/ul (4.8-10.8) H 11/10/24 Hgb 10.5 g/dl (12.0-16.0) L 11/10/24 Hct 31.2 % (37.0-47.0) L 11/10/24 Plt Count 195 K/uL (130-400) 11/10/24 Results CMP Results: Sodium 139 mmol/L (136-145) 11/10/24 Potassium 3.8 mmol/L (3.5-5.1) 11/10/24 Chloride 103 mmol/L (98-107) 11/10/24 Carbon Dioxide 31 mmol/L (21-32) 11/10/24 Anion Gap 5 (3-11) 11/10/24 BUN 16 mg/dl (6-23) 11/10/24 Creatinine 0.76 mg/dl (0.6-1.2) 11/10/24 eGFR 79.66 11/10/24 BUN/Creatinine Ratio 21.1 (10-20) H 11/10/24 Glucose 126 mg/dl (70-99(Fasting)) H 11/10/24 Calcium 8.4 mg/dl (8.6-10.3) L 11/10/24 Phosphorus 3.5 mg/dl (2.5-4.9) 11/08/24 Total Bilirubin 1.4 mg/dl (0.2-1.0) H 11/10/24 Direct Bilirubin 0.1 mg/dl (0-0.2) 11/08/24 AST 107 U/L (13-39) H 11/10/24 ALT 112 U/L (7-52) H 11/10/24 Alkaline Phosphatase 94 U/L (34-104) 11/10/24 Total Protein 5.9 gm/dl (6.0-8.3) L 11/10/24 Albumin 3.3 gm/dl (3.4-5.0) L 11/10/24 Globulin 2.6 gm/dl (2.5-4.0) 11/10/24 Albumin/Globulin Ratio 1.3 (0.9-2) 11/10/24 PG Care Time/CCT Total # of Minutes Spent Total Time Spent with Patient: Total time spent is greater than 50% in coordination of care (as documented) at patient's floor/unit and/or counseling patient: Coding Level of Care Code 81155 Post Operative Follow-Up Diagnoses Bile leak K83.9 Acute cholecystitis K81.0
--- NOTE | 2024-11-10 11:32 | Hospitalist Progress Note ---
Date of Service November 10, 2024 Assessment & Plan (1) Abdominal pain: (2) Acute cholecystitis: (3) Bile leak: Plan Ashley is a 79 yr old F who has a significant PMH of HLD, Pre diabetes and osteopenia who presented to ED on 11/07 for upper abdominal pain. #Abdominal pain #Acute cholecystitis #Post operative bile leak S/P Lap Mary by Dr. Alcala, POD #2 Pt with significant post op RUQ pain, incisions w/o erythema, + ecchymosis HIDA scan with concern for bile leak Gen Surg reached out to GI - s/p ERCP by Dr. Roth with 1 stent placed in CBD and feeling much improved Tolerated full liquids for breakfast, GI advancing to low fat diet for lunch LFTs slightly bumped this am and T bili 1.2 ->1.4 Per gen surg, Follow up am H/H to confirm stability and LFTs to confirm these are starting to trend down and if acceptable can can dc in AM with follow up to GI and Dr. Alcala Colace BID added for bowel regimen #Hypoxia: suspect in setting of RUQ pain/guarding, continue to encourage Incentive spirometry and pain control, will add 2 step this afternoon if continues to require O2 #Abnormal Pelvic Imaging: Left adrenal nodule 15 x 11 mm and focal fluid or simple cyst in the endometrial cavity measuring 0.7 x 1.3 cm. Patient and her made aware of the findings. They are made aware to follow this up as an outpatient with dedicated imaging for left adrenal nodule and gynecology ev aluation for endometrial cyst #Other chronic medical conditions: HLD, continue with home medications. Hold multivitamins for now DVT prophylaxis: Continue SCDs for now, per gen surg Code: FULL PCP: Dr. Lindsay Dispo: Pt not yet medically stable for discharge, likely Pt was seen and examined in collaboration with Dr. Aldridge please see addendum. I spent a total of 45 minutes coordinating, documenting and providing care for this patient excluding time spent in the performance of separately billed services or time spent by another provider/QHP. Admission and Anticipated Discharge Date Admission Date: November 07, 2024 Supervising Physician Co-Signing Physician Notes Patient seen and examined at bedside. Patient doing very well today, much improved from yesterday pain villalta and overall. On exam, RUQ much improved to palpation. LFTs slightly uptrended s/p stent placement. Appreciate GI and surgical assistance with case. Will monitor LFTs, likely ready for discharge tomorrow. I have seen and discussed the case with the collaborating advanced practitioner. I agree with the above H&P. I have reviewed and confirmed the patients medical history, the findings on physical examination, and the patients diagnosis and treatment plan with Nicki Saleem PA-C and agree with the information documented. I spent a total of 20 minutes coordinating, documenting, and providing care for this patient excluding time spent in the performance of separately billed services. All of the aforementioned completed outside of collaborating with the assigned advanced practitioner for a full treatment plan. I have reviewed the advanced practitioner's documentation, and I agree with, and take responsibility for the plan of care Subjective Seen and examined in 352-1. Feeling much better today. No abdominal pain. Tolerated liquids for breakfast and advanced to low fat diet for lunch. Slept well overnight. No F/C, lightheadedness, CP, SOB, N/V, dysuria, diarrhea or constipation. Passing flatus. No post-op bowel movement yet. Review of Systems Review of Systems: At least ten systems reviewed and negative except as noted in the HPI. Physical Exam Physical Exam: Gen: WD/WN, NAD, sitting up in bed with family at bedside, A&Ox3 HEENT: Normocephalic, atraumatic, conjunctivae moist, sclerae anicteric, mucous membranes moist Lung: Clear to Auscultation bilaterally, no wheezes/rales/rhonchi Heart: Regular rate, regular rhythm Abdomen: Soft, NT, ND +BS x 4, well healing laparoscopic incisions with ecchymosis Extremities: no edema Skin: Warm, no rash Results & Data Results & Data Vital Signs (Past 12 Hours) Vital Signs Temp Pulse Resp BP Pulse Ox O2 Del Method O2 Flow Rate 11/10/24 07:05 36.8 C 74 18 121/74 95 Nasal Cannula 11/10/24 04:38 36.8 C 79 12 118/72 92 Nasal Cannula 2 11/10/24 01:56 36.7 C 77 12 115/71 92 Nasal Cannula 2 Laboratory Results Short CBC 11/10/24 Range/Units 05:34 WBC 14.94 H (4.8-10.8) K/ul Hgb 10.5 L (12.0-16.0) g/dl Hct 31.2 L (37.0-47.0) % Plt Count 195 (130-400) K/uL BMP 11/10/24 05:34 Sodium 139 Potassium 3.8 Chloride 103 Carbon Dioxide 31 BUN 16 Creatinine 0.76 Glucose 126 H Calcium 8.4 L Liver Function 11/10/24 Range/Units 05:34 Total Bilirubin 1.4 H (0.2-1.0) mg/dl AST 107 H (13-39) U/L ALT 112 H (7-52) U/L Alkaline Phosphatase 94 (34-104) U/L Albumin 3.3 L (3.4-5.0) gm/dl Diagnostic Findings Chest X-Ray 11/07/24 14:08 XR chest 1V portable CLINICAL HISTORY: abd pain COMPARISON STUDY: 07/24/2023 FINDINGS: Single view portable chest is unchanged demonstrating mild cardiomegaly and pulmonary vascular congestion. Slight prominence of the interstitial lung markings is once again noted. There is no focal airspace opacity or pleural effusion. There is no pneumothorax. There is atherosclerotic ectasia of the ascending aorta and aortic arch which also appears stable allowing for AP portable technique. IMPRESSION: No definite evidence of acute process. Cardiomegaly and aortic ectasia identified. ACT 112: Negative or not required by law. Electronically signed by: Leticia Gaona M.D. 11/07/2024 3:31 PM Gallbladder Ultrasound 11/07/24 14:42 Clinical history: Right upper quadrant pain Technique: Sonography was performed of the right upper quadrant of the abdomen Findings: There is fatty infiltration of the liver. No definite liver mass is seen. The liver measures 18.9 cm. There is normal directional flow in the main portal vein There are multiple gallstones. There is also apparent gallbladder sludge. The gallbladder is mildly distended. The gallbladder wall measures 3 mm, the upper limit of normal. No definite sonographic Sheriff sign was detected, though this could be due to pain medication. There is no intrahepatic or extrahepatic bile duct dilatation. The common bile duct measures 3 mm The right kidney measures 11.5 cm in length. There is no hydronephrosis. No definite renal calculus or mass is seen The visualized pancreas, aorta, and IVC appear unremarkable. No ascites is seen Impression: 1. Cholelithiasis with possible acute cholecystitis 2. Fatty infiltration of the liver ACT 112: Positive. There are findings on this exam that require communication between the performing entity and the patient following Patient Test Result Information Act ([place] ACT 112) guidelines. Electronically signed by Arturo Berger 11-07-2024 5:12 PM Pelvis Ultrasound 11/07/24 14:42 EXAMINATION: Ultrasound pelvis complete CLINICAL HISTORY: Follow-up from CT PRIORS: Abdomen CT today TECHNIQUE: Transabdominal pelvic ultrasound was performed with grayscale and color Doppler imaging. Transvaginal portion of the examination was declined. FINDINGS: Urinary bladder is filled with normal morphology. The uterus measures 6.0 x 2.6 x 3.7 cm. Nabothian cysts noted in the cervix. Endometrial stripe measures 3 mm. Simple cyst cyst and/or focal area of fluid present within the endometrial cavity measuring 0.7 x 1.3 cm. No vascularity or solid components. Ovaries not visualized. No large adnexal cyst or mass. No free fluid in the pelvis. IMPRESSION: 1. Focal fluid or simple cyst in the endometrial cavity measuring 0.7 x 1.3 cm with no endometrial thickening or vascularity. If clinical concern warrants, gynecologic consultation could be considered. ACT 112: Positive. There are findings on this examination that require communication between the performing entity and the patient following Patient Test Result Information Act ([place] ACT 112) guidelines. Electronically signed by Laurel Angulo 11-07-2024 5:00 PM Endo Retro Cholangiopancreatogram 11/09/24 00:00 ERCP CLINICAL HISTORY: ERCP. Bile leak. COMPARISON: CT of the abdomen and pelvis and right upper quadrant ultrasound November 07, 2024. Nuclear medicine hepatobiliary study November 09, 2024. FLUOROSCOPY TIME: 2 minutes and 27 seconds NUMBER OF FLUOROSCOPIC IMAGES: 6 Ka,r: 18.313 mGy. FINDINGS: Fluoroscopy was provided during ERCP. Common bile duct was cannulated. Biliary tree is partially opacified. Contrast extravasation from the cystic duct stump indicates a bile leak. Subsequent images demonstrate placement of a common bile duct stent. IMPRESSION: Fluoroscopy provided during ERCP with placement of a common bile duct stent. Electronically signed by: Avinash Bruno M.D. 11/09/2024 3:47 PM Hepatobiliary Scan Nuclear Medicine 11/09/24 09:51 NUCLEAR MEDICINE HEPATOBILIARY SCAN CLINICAL HISTORY: Right upper quadrant pain status post laparoscopic cholecystectomy. Evaluate for bile leak. COMPARISON: CT of the abdomen and pelvis and right upper quadrant ultrasound November 07, 2024. TECHNIQUE: 5.5 mCi of technetium 99m Choletec IV was injected at 10:37 AM on November 09, 2024. Immediately following injection, imaging of the abdomen was carried out for 60 minutes in the anterior projection. FINDINGS: Hepatic uptake of radiotracer is prompt and homogeneous. Small bowel activity is noted at 15 minutes. There is abnormal accumulation of radiotracer within the iveth hepatis, cholecystectomy bed and along the right hepatic lobe. These findings indicate a bile leak. IMPRESSION: Scintigraphic findings consistent with a bile leak. ACT 112: Negative or not required by law. Electronically signed by: Avinash Bruno M.D. 11/09/2024 11:48 AM
[2024-11-10] MEDS ORDERED: POLYETHYLENE (MIRALAX) 17 GM PACK PO PRN (17:12)
[2024-11-10] MEDS: LACTATED RINGER'S 1,000 ML IV SCH (18:43)
[2024-11-10] MEDS: ACETAMINOPHEN 325 MG TAB PO PRN (22:21)
[2024-11-11 08:23] LABS: Hematocrit (blood only) 31.3 % (37.0-47.0); Hemoglobin 10.1 g/dl (12.0-16.0); Mean Corpuscular Hemoglobin 30.7 pg (25.0-34.0); Mean Corpuscular Hgb Conc 32.3 g/dL (32.0-36.0); Mean Corpuscular Volume 95.1 fL (80.0-100.0); Mean Platelet Volume 10.4 fL (9.4-12.4); Platelet Count 210 K/uL (130-400); RDW Coefficient of Variation 13.6 % (11.5-14.5); RDW Standard Deviation 47.6 fL (36.4-46.3); Red Blood Count 3.29 M/uL (4.20-5.40); White Blood Count 11.35 K/ul (4.8-10.8)
[2024-11-11 08:24] VITALS: BP 150/80; PULSE 82; RESP 18; TEMP 98.1
[2024-11-11 08:48] LABS: Albumin Globulin Ratio 1.1 (0.9-2); Albumin Level 3.2 gm/dl (3.4-5.0); BUN Creatinine Ratio 22.5 (10-20); Bilirubin,Total 0.8 mg/dl (0.2-1.0); Calcium 8.3 mg/dl (8.6-10.3); Creatinine Clr Calc Pharmacy 58.6 ml/min; Globulin 2.8 gm/dl (2.5-4.0); Potassium 3.4 mmol/L (3.5-5.1)
--- NOTE | 2024-11-11 10:14 | Surgery Progress Note ---
<Statement entered by Rolly Jordan DO - 11/11/24 12:48> I have seen this patient with the surgical PA and I agree withe plan. Date of Service November 11, 2024 Assessment & Plan (1) Acute cholecystitis: Plan: POD 3 lap claudia POD 2 ERCP with stent placement WBC 11.3, Hbg 10.1 (10.5), LFTs downtrending today- Tb 0.8 (1.4), ASt 57, ALT 84. On some supplemental O2, other VSS Pt doing well without complaints. on low fat diet Okay for discharge from our standpoint if ok with medicine and GI. no abx needed from our standpoint unless GI requests Will need f/u in the office as an outpatient with Dr. Alcala in 1-2 wks and with GI as an outpt for stent removal which they will set up (2) Bile leak: Admission and Anticipated Discharge Date Admission Date: November 07, 2024 Subjective Patient feeling well. Offers no complaints eager to go home Physical Exam Physical Exam: awake/alert Results & Data Vital Signs (Past 12 Hours) Vital Signs Temp Pulse Resp BP Pulse Ox O2 Del Method O2 Flow Rate 11/11/24 08:22 98.1 F 82 18 150/80 H 93 Nasal Cannula 2 PG Care Time/CCT Total # of Minutes Spent Total Time Spent with Patient: Total time spent is greater than 50% in coordination of care (as documented) at patient's floor/unit and/or counseling patient: Coding Level of Care Code 11717 SUB INP/OBS CARE 08/25MIN Diagnoses Acute cholecystitis K81.0 Bile leak K83.9
[2024-11-11 11:23] VITALS: O2SAT 91
--- NOTE | 2024-11-11 12:47 | Discharge Summary ---
Discharge Summary Date of Service November 11, 2024 Principal Dx & Hospital Course #1 = Principal Diagnosis (1) Abdominal pain: (2) Acute cholecystitis: (3) Bile leak: Neetu Ramirez is a 79 yr old F who has a significant PMH of HLD, Pre diabetes and osteopenia who presented to ED on 11/07 for upper abdominal pain. #Abdominal pain #Acute cholecystitis #Post operative bile leak S/P Lap Mary by Dr. Alcala on 11/08 Pt with significant post op RUQ pain, incisions w/o erythema, + ecchymosis HIDA scan with concern for bile leak S/p ERCP on 11/[address] Roth with 1 stent placed in CBD and feeling much imp roved No further antibiotic treatment recommended per GI, Gen surg Tolerating diet, passing flatus LFTs downtrending Continue PRN pain control, bowel regimen #Hypoxia Suspect 2/2 RUQ pain/guarding, resolved with incentive spirometry and ambulation. Now saturating at 91% on room air, no SOB Continue IS at home #Abnormal Pelvic Imaging Left adrenal nodule 15 x 11 mm and focal fluid or simple cyst in the endometrial cavity measuring 0.7 x 1.3 cm Patient and her made aware of the findings Follow up as outpatient with dedicated imaging for left adrenal nodule and endometrial cyst #Other chronic medical conditions: HLD, continue with home medications Care coordinated with Dr. Aldridge. Notes For Next Care Provider S/p lap mary and biliary stent placement for bile leak Medication Changes From Visit PRN tylenol and oxycodone, continue bowel regimen Admission HPI Per Admitting Provider 79-year-old lady with PMH of HLD, osteopenia, prediabetes presents to the ED with complaint of upper belly pain. 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 Her pain slowly improved and she was discharged to home. After reaching home she ate tea and toast and her pain increased and became severe. While coming back to the hospital to see took a small dose of ibuprofen and she received IV Tylenol in the ED which helped improve her pain down to 0 at bedside exam. Patient denies fever/sore throat/cough/nausea/vomiting. Patient had an episode of nausea last evening and an episode of dry heave today morning. Patient denies any pain or burning with passing urine, reports moving bowels okay. Patient denies smoking tobacco/alcohol use/recreational drug use. Medications reviewed with the patient and her at bedside. Plan of care discussed with the patient in detail. She voiced understanding. Full code Admission Exam Per Admitting Provider GENERAL: Alert and oriented x3. NAD, on RA. HEENT: No pallor, no icterus. Pupils equal, round and reactive to light. Oral mucosa moist. NECK: No JVD, no neck masses. HEART: S1 and S2 heard. Regular rate and rhythm. No murmur, no gallop. RESPIRATORY SYSTEM: Normal AP diameter. No accessory muscle use. No wheezing, no crackles. ABDOMEN: Soft, bowel sounds present, nontender, no distention. CENTRAL NERVOUS SYSTEM: No facial droop. Speech is clear. Obeys simple commands. Moves extremities. EXTREMITIES: No edema, no erythema seen. Discharge Exam Gen: WD/WN, NAD, sitting up in bed with family at bedside, A&Ox3 HEENT: Normocephalic, atraumatic, conjunctivae moist, sclerae anicteric, mucous membranes moist Lung: Clear to Auscultation bilaterally, no wheezes/rales/rhonchi Heart: Regular rate, regular rhythm Abdomen: Soft, NT, ND +BS x 4, well healing laparoscopic incisions with ecchymosis Extremities: no edema Skin: Warm, no rash Updated Medication List Medication Instructions Recorded Confirmed Type calcium 600 mg (as 1 tab PO BID 08/15/24 11/07/24 History carbonate)-vitamin D3 5 mcg (200 unit) tablet calcium polycarbophil 625 mg tablet 1,875 mg PO HS 08/15/24 11/07/24 History cholecalciferol (vitamin D3) 50 50 mcg PO QAM 08/15/24 11/07/24 History mcg (2,000 unit) tablet (Vitamin D3) fish, borage, flaxseed oils-omega 1 cap PO QAM 08/15/24 11/07/24 History 3,6,9 cb #1 400 mg-400 mg-400 mg cap (Triple Adams 3-6-9) glucosamine sulf dipot 1 cap PO QAM 08/15/24 11/07/24 History chlr,msm,chond 550 mg-C 30 mg-manfred 1 mg capsule (Glucosamine Chondroitin) multivitamin 1 tab PO QAM 08/15/24 11/07/24 History atorvastatin 20 mg tablet 20 mg PO QAM 11/07/24 11/07/24 History grape seed extract 50 mg capsule 0 mg PO QAM 11/07/24 11/07/24 History oxycodone-acetaminophen 5 mg-325 1 tab PO Q6H PRN pain #12 tabs 11/09/24 Rx mg tablet Hospital Stay Data Consultations 11/07/24 17:58 ED Decision to Admit Stat 11/07/24 18:15 Consult General Surgery Routine 11/09/24 11:56 Consult Gastroenterology Routine Procedures Performed Operation Date: 11/09/24 10:35 Actual Procedures p Endoscopic Retrograde Cholangiopancreato - Hector Roth MD Diagnostic Imagining Performed 11/07/24 14:42 US gallbladder Stat US pelvic complete Stat 11/09/24 [place] ERCP biliary ductal Routine Pending Results Patient Have Any Pending Studies at Discharge: Yes (gallbladder pathology) Discharge Instructions Given to Patient (Per Discharging Provider) You were admitted with abdominal pain and underwent laparoscopic removal of gall bladder on 11/08. This was followed by biliary stent placement on 11/09 for bile leak. Pain has improved significantly since biliary stent placement. Please continue with activity instructions, bowel regimen to prevent constipation and as needed pain medication per surgical instructions below. Continue using incentive spirometry 10x/hour upon return home to help exercise lungs as you recover. RECOMMENDATIONS FOR FOLLOW-UP: Follow up with PCP Dr. Lindsay (their office will call you with a follow up appointment) Please call general surgery office for 2 week follow up if not already scheduled ([phone]) GI office will contact you to schedule follow up appointment and stent removal Left adrenal nodule and endometrial cavity cyst noted on CT abd/pelvis as discussed with you. 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 Please take good care of yourself. Call if you have any questions or problems. You can reach a [facility] hospitalist on duty at [facility] 24 hours a day by calling [phone]. Total Time Total Time Spent Total Time Spent (In Minutes): 45 Supervising Physician Co-Signing Physician Notes Patient seen before discharge. Patient feels well, not SOB with exertion, walking around with ease. Minimal RUQ pain. Stable for discharge home, needs f/u with surgery outpatient, careful care of surgical wound sites. I have seen and discussed the case with the collaborating advanced practitioner. I agree with the above H&P. I have reviewed and confirmed the patients medical history, the findings on physical examination, and the patients diagnosis and treatment plan with Nicki Saleem PA-C and agree with the information documented. I spent a total of 20 minutes coordinating, documenting, and providing care for this patient excluding time spent in the performance of separately billed services. All of the aforementioned completed outside of collaborating with the assigned advanced practitioner for a full treatment plan. I have reviewed the advanced practitioner's documentation, and I agree with, and take responsibility for the plan of care
== END 2024-11-11 13:16 | disposition home or self-care (01) | DRG 418 ==
LOC: ED 13:51 → 3W 18:15 → SUATTDRO 18:15 → 3W 20:15